=== PATIENT | male | born 1930 | race Caucasian/White ===

== ENCOUNTER 2017-12-21 13:38 | Emergency (ER) | payer OTHER ==
[2017-12-21 13:49] VITALS: TEMP 97.7
--- NOTE | 2017-12-21 14:59 | EDPHY ---
H & P Stated Complaint: 1 week ago fell and hit head, +LOC, ataxic, low appetite, confusion Time Seen by Provider: 12/21/17 14:46 HPI/ROS: CHIEF COMPLAINT: Head injury HISTORY OF PRESENT ILLNESS: Patient is an 87-year-old man who fell backwards in the bathroom in his head on the tile 1 week ago [place] He was seen in the clinic there but they did not have a CT available. He and his just return to the [facility] today. He has a small occipital laceration that was cared for with [facility]. He has had intermittent headaches and very slight confusion and possibly an ataxic gait according to his who is a retired physician. Patient also complains of some bilateral neck pain that does not include the midline. No focal weakness or deficits. 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 REVIEW OF SYSTEMS: Constitutional: denies: chills, fever, recent illness, recent injury EENTM: denies: blurred vision, double vision, nose congestion Respiratory: denies: cough, shortness of breath Cardiac: denies: chest pain, irregular heart rate, lightheadedness, palpitations Gastrointestinal/Abdominal: denies: abdominal pain, diarrhea, nausea, vomiting, blood streaked stools Genitourinary: denies: dysuria, frequency, hematuria, pain Musculoskeletal: See HPI Skin: denies: lesions, rash, jaundice, bruising Neurological: See HPI denies: numbness, paresthesia, tingling, dizziness, weakness Hematologic/Lymphatic: denies: blood clots, easy bleeding, easy bruising Immunologic/allergic: denies: HIV/AIDS, transplant EXAM: GENERAL: Well-appearing, well-nourished and in no acute distress. HEAD: Healing occipital laceration, foul-smelling bandages removed however wound itself is clean, no erythema or drainage. EYES: Pupils equal round and reactive to light, extraocular movements intact, sclera anicteric, conjunctiva are normal. ENT: TMs normal, nares patent, oropharynx clear without exudates. Moist mucous membranes. NECK: Normal range of motion, supple without lymphadenopathy or JVD. LUNGS: Breath sounds clear to auscultation bilaterally and equal. No wheezes rales or rhonchi. HEART: Regular rate and rhythm without murmurs, rubs or gallops. ABDOMEN: Soft, nontender, normoactive bowel sounds. No guarding, no rebound. No masses appreciated. BACK: No CVA tenderness, no spinal tenderness, step-offs or deformities EXTREMITIES: Normal range of motion, no pitting or edema. No clubbing or cyanosis. NEUROLOGICAL: Cranial nerves II through XII grossly intact. Normal speech, normal gait. 5/5 strength, normal movement in all extremities, normal sensation PSYCH: Normal mood, normal affect. SKIN: See above Source: Patient, Family Exam Limitations: No limitations - Personal History Current Tetanus/Diphtheria Vaccine: Yes Current Tetanus Diphtheria and Acellular Pertussis (TDAP): Yes Tetanus Vaccine Date: < 10 years - Medical/Surgical History Hx Asthma: No Hx Chronic Respiratory Disease: No Hx Diabetes: No Hx Cardiac Disease: No Hx Renal Disease: No Hx Cirrhosis: No Hx Alcoholism: No Hx HIV/AIDS: No Hx Splenectomy or Spleen Trauma: No Other PMH: TIAs - Family History Significant Family History: No pertinent family hx - Social History Smoking Status: Never smoked Alcohol Use: Sober Constitutional: Initial Vital Signs Temperature (C) 36.5 C 12/21/17 13:43 Heart Rate 53 L 12/21/17 13:43 Respiratory Rate 18 12/21/17 13:43 Blood Pressure 176/66 H 12/21/17 13:43 O2 Sat (%) 93 12/21/17 13:43 O2 Delivery Mode Room Air Allergies/Adverse Reactions: novacaine Allergy (Uncoded 12/22/17 20:37) Other-Enter Comments Home Medications: Medication Instructions Recorded Aspirin [Aspirin 81mg (*)] 81 mg PO DAILY 12/21/17 Montelukast Sodium [Singulair 10 10 mg PO DAILY@1800 12/21/17 mg (*)] Ondansetron Odt [Zofran Odt 4 mg 4 mg PO Q4 PRN #10 tab 12/21/17 (RX)] Albuterol [Proventil Inhaler HFA 1 - 2 puffs IH Q4-6PRN PRN 12/22/17 (*)] Ibuprofen [Motrin (*)] 200 mg PO Q4-6PRN PRN 12/22/17 Ketorolac 0.5% [Acular 0.5% Opht 1 drops LEFTEYE BID 12/22/17 Drops (*)] Propylene Glycol [Systane Balance] 1 drop EACHEYE PRN PRN 12/23/17 Medical Decision Making - Diagnostics Imaging: Discussed imaging studies w/ inbound call center representative Radiologist ED Course/Re-evaluation: We discussed the CT results which are reassuring. The patient and his feel much better. He still has some slight nausea and will treat with Zofran 4 which will hopefully decrease his appetite and hydration. His wound was redressed. We discussed indications for returning. We discussed treatment for concussions. Differential Diagnosis: Partial list of the Differential diagnosis considered include but were not limited to; concussion, laceration, intracranial injury and although unlikely based on the history and physical exam, I also considered fracture, cervical spine injury, radiculopathy. I discussed these differential diagnoses and the plan with the patient as well as the usual and expected course. The patient understands that the diagnosis is provisional and that in medicine we are not always correct and that further workup is often warranted. Usual and customary warnings were given. All of the patient's questions were answered. The patient was instructed to return to the emergency department should the symptoms at all worsen or return, otherwise to followup with the physician as we discussed. - Data Points Medications Given: Discontinued Medications Ondansetron HCl (Zofran Odt) 4 mg PO EDNOW ONE Stop: 12/21/17 15:51 Last Admin: 12/21/17 16:17 Dose: Not Given Departure - Departure Disposition: Home, Routine, Self-Care Clinical Impression: Concussion Qualifiers: Encounter type: initial encounter Loss of consciousness presence/duration: without LOC Qualified Code(s): S06.0X0A - Concussion without loss of consciousness, initial encounter Scalp laceration Qualifiers: Encounter type: subsequent encounter Qualified Code(s): S01.01XD - Laceration without foreign body of scalp, subsequent encounter Condition: Fair Instructions: Laceration (ED), Concussion (ED) Referrals: Marcio Wesley MD [Primary Care Provider] - As per Instructions Prescriptions: Ondansetron Odt [Zofran Odt 4 mg (RX)] 4 mg PO Q4 PRN #10 tab PRN Reason: Nausea & Vomiting
[2017-12-21] MEDS ORDERED: ONDANSETRON DISINTEGRATING 4 MG TAB PO ONE (15:50)
[2017-12-21 16:13] VITALS: RESP 16
[2017-12-21 16:14] VITALS: BP 156/73; PULSE 67; O2SAT 95
== END 2017-12-21 16:11 | disposition home or self-care (01) ==
DX: S06.0X0A Concussion without loss of consciousness, initial encounter (principal); S01.01XA Laceration without foreign body of scalp, initial encounter; Z79.82 Long term (current) use of aspirin; W01.198A Fall on same level from slipping, tripping and stumbling with subsequent striking against other object, initial encounter; Y92.012 Bathroom of single-family (private) house as the place of occurrence of the external cause

== ENCOUNTER 2017-12-22 18:54 | Inpatient (IN) | payer OTHER ==
[2017-12-22] MEDS ORDERED: NS 500 ML IV ONE (18:57)
[2017-12-22] MEDS ORDERED: IOPAMIDOL (ISOVUE 370) 100 ML BTL IV ONE (19:05)
--- NOTE | 2017-12-22 19:05 | EDPHY ---
H & P Time Seen by Provider: 12/22/17 18:56 HPI/ROS: HPI Fall at home, a facial. 87-year-old male by ambulance. Initially called a stroke alert. Patient reportedly fell by tripping at 6:30 p.m.. The patient reports that he was stepping back in his easy chair lost his balance and fell over backwards. His who accompanies him noted him to be very unsteady on his feet after this event. She stated that he was acting like he was drunk. She then called EMS. He was having receptive aphasia according to EMS. He could not identify a watch and other basic objects. No reported motor weakness. No vomiting. He was seen in our emergency department a day or 2 ago after having fallen 1 week ago while in [facility] on vacation. He was having some confusion. The patient was brought to the emergency department by family for evaluation. He had a CT noncontrast of his brain at that time. He was discharged with diagnosis of concussion syndrome. Glucose per EMS is 137. ROS: Constitutional: No fever, no chills. No weakness. Eyes: No discharge. No changes in vision. ENT: No sore throat. No nasal congestion or rhinorrhea. Respiratory: No cough. No shortness of breath. Cardiac: No chest pain, no palpitations. Gastrointestinal: No abdominal pain, no vomiting, no diarrhea. Genitourinary: No hematuria. No dysuria or increased frequency with urination. Musculoskeletal: No back pain. No neck pain. No myalgias or arthralgias. Skin: No rashes. Neurological: No headache. No focal weakness or altered sensation. As above. Past medical history: He denies any significant past medical history. He takes a daily aspirin. Social history: Nonsmoker. No alcohol. Lives with family. Physical Exam: General Appearance: Alert, no distress. This patient is responding to questions appropriately and in full sentences. This patient appears well- hydrated and well-nourished. Eyes: Pupils equal and round no pallor or injection. No lid edema, erythema or injection. ENT, Mouth: Mucous membranes are moist. The pharyngeal tissues are unremarkable. No edema or swelling. No asymmetry suggestive of abscess. No erythema or exudates. Respiratory: There are no retractions, lungs are clear to auscultation with good air movement bilaterally. Cardiovascular: Regular rate and rhythm. No murmur. Gastrointestinal: Abdomen is soft and nontender, no masses, bowel sounds normal. No focal tenderness at McBurney's point. No Jefferson sign. Neurological: Motor sensory function is grossly intact. Cranial nerves are normal. Cerebellar function, [id number], [id number] intact. Patient demonstrates no expressive aphasia. On my initial evaluation he was slow to identify objects such as a watch and the type of building he was in but he was able to do so. Skin: Warm and dry, no rashes. Musculoskeletal: Neck is supple and nontender. Extremities are symmetrical. All joints range without pain or impingement. Psychiatric: No agitation. No depression. Database: EKG: EKG time is 7:46 p.m.; EKG shows a narrow complex sinus arrhythmia rhythm with a ventricular rate of 59. The ID, QRS, QT intervals are within normal limits. There are no ST-T wave changes indicative of ischemic or injury pattern. No evidence of right heart strain. Interpreted by me. Imaging: CT head without contrast: Age-related changes. Otherwise negative for acute pathology. 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 Results discussed with staff radiologist Dr. Mauro Coker. CT angiogram of head neck. Significant for severe atherosclerotic disease in both carotid arteries with 80% stenosis on the right side. The left carotid is critically stenosed with a possible clot distal to this extreme stenosis. The brain vasculature was unremarkable. Results were discussed with staff radiologist Dr. Mauro Coker. Procedures: Emergency department course: IV placed. Patient placed on a monitor. I evaluated this patient at the door. At this time he had a nonfocal initial neurologic Assessment. There was no evidence of receptive or expressive aphasia as reported by EMS. He was sent for CT imaging as above. 8:00 p.m., spoke with Dr. Kunal Torres. He is familiar with this patient. He will evaluate the patient in the morning for endarterectomy. He is requesting we admit the patient to the hospitalist service. 8:05 p.m., patient re-evaluated. No change in his neurologic status. No focality on exam. He has been downgraded from his stroke alert status. I discussed results of imaging studies with him and his . I discussed plan for admission to our hospitalist service and the need for IV heparin. All of their questions were answered. We will have Neurology consult on this patient in the morning as well as Dr. Kunal Torres to assess for endarterectomy. 8:15 p.m., discussed case with on-call hospitalist Dr. Graf. Case discussed in detail with him. Dr. Graf accepts this patient for admission to the hospitalist service. Patient was started on IV heparin in the emergency department. His remaining emergency department course under my care has been uneventful. He was admitted in stable and improved condition to the hospitalist service [facility] [address]. Differential Diagnosis: The differential diagnosis on this patient includes but is not limited to severe carotid atherosclerotic disease, mechanical fall, TIA. This represents a partial list of diagnoses considered. These considerations are based on history, physical exam, past history, reassessment and diagnostic testing. Smoking Status: Never smoked Constitutional: Initial Vital Signs Temperature (C) 36.8 C 12/22/17 19:27 Heart Rate 53 L 12/22/17 19:27 Respiratory Rate 16 12/22/17 19:27 Blood Pressure 162/76 H 12/22/17 19:27 O2 Sat (%) 94 12/22/17 19:27 O2 Delivery Mode Room Air Allergies/Adverse Reactions: novacaine Allergy (Uncoded 12/22/17 20:37) Other-Enter Comments Home Medications: Medication Instructions Recorded Aspirin [Aspirin 81mg (*)] 81 mg PO DAILY 12/21/17 Montelukast Sodium [Singulair 10 10 mg PO DAILY@1800 12/21/17 mg (*)] Ondansetron Odt [Zofran Odt 4 mg 4 mg PO Q4 PRN #10 tab 12/21/17 (RX)] Albuterol [Proventil Inhaler HFA 1 - 2 puffs IH Q4-6PRN PRN 12/22/17 (*)] Ibuprofen [Motrin (*)] 200 mg PO Q4-6PRN PRN 12/22/17 Ketorolac 0.5% [Acular 0.5% Opht 1 drops LEFTEYE BID 12/22/17 Drops (*)] Propylene Glycol [Systane Balance] 1 drop EACHEYE PRN PRN 12/23/17 Medical Decision Making - Data Points Laboratory Results: Laboratory Results 12/22/17 19:00 12/22/17 19:00 Medications Given: Aspirin (Aspirin) 81 mg PO DAILY MEL Stop: 06/21/18 08:59 Last Admin: 12/24/17 08:50 Dose: 81 mg Enalaprilat (Vasotec Iv) 1.25 mg IVP Q4H PRN PRN Reason: SBP>160 Stop: 06/21/18 21:39 Last Admin: 12/24/17 08:49 Dose: 1.25 mg Hydromorphone HCl (Dilaudid) 0.2 - 0.4 mg IVP Q2HRS PRN PRN Reason: Pain, Severe Unable to Take PO Stop: 01/02/18 19:53 Last Admin: 12/23/17 20:50 Dose: 0.2 mg Cefazolin Sodium/Dextrose (Ancef 1 Gm (Premix)) 50 mls @ 200 mls/hr IV Q8H MEL PRN Reason: Protocol Stop: 12/24/17 18:44 Last Admin: 12/24/17 02:20 Dose: 50 mls Dexmedetomidine/Sodium Chloride (Precedex 4 Mcg/Ml 50 Ml (Premix)) 50 mls @ 0 mls/hr IV CONT MEL PRN Reason: As Directed Stop: 06/21/18 21:59 Last Admin: 12/24/17 06:12 Dose: 50 mls Ketorolac Tromethamine (Acular 0.5% Opht Drops) 1 drops LEFTEYE BID [facility] Stop: 06/21/18 08:59 Last Admin: 12/24/17 08:52 Dose: 1 drop Lorazepam (Ativan Injection) 0.5 - 1 mg IVP Q8H PRN PRN Reason: AGITATION Stop: 06/21/18 21:38 Last Admin: 12/23/17 21:15 Dose: 0.5 mg Montelukast Sodium (Singulair) 10 mg PO DAILY@1800 [facility] Stop: 06/21/18 17:59 Last Admin: 12/23/17 23:01 Dose: Not Given Discontinued Medications Bacitracin (Bacitracin Ointment Tube) Confirm Administered Dose 14.2 dana TP .STK -MED ONE Stop: 12/23/17 15:33 Last Admin: 12/23/17 20:22 Dose: Not Given Bupivacaine HCl (Sensorcaine 0.5% Vial) Confirm Administered Dose 30 ml .ROUTE .STK-MED ONE Stop: 02/12/18 15:31 Last Admin: 12/23/17 19:25 Dose: 15 ml Cefazolin Sodium (Ancef) Confirm Administered Dose 1 gm .ROUTE .STK-MED ONE Stop: 12/23/17 18:32 Last Admin: 12/23/17 18:32 Dose: 1 gm Cefazolin Sodium (Ancef) Confirm Administered Dose 1 gm .ROUTE .STK-MED ONE Stop: 12/23/17 18:32 Last Admin: 12/23/17 19:05 Dose: Not Given Heparin Sodium (Porcine) (Heparin Injection) 0 unit IVP EDNOW ONE PRN Reason: Protocol Stop: 12/22/17 20:00 Last Admin: 12/22/17 20:39 Dose: 4,500 units Heparin Sodium (Porcine) (Heparin Injection) 0 unit IVP ONCE ONE PRN Reason: Protocol Stop: 12/22/17 21:09 Last Admin: 12/22/17 23:07 Dose: Not Given Heparin Sodium (Porcine) (Heparin Flush 2,000 Unit/Ns 1,000 Ml) Confirm Administered Dose 2,000 unit .ROUTE .[facility]-MED ONE Stop: 12/23/17 15:32 Last Admin: 12/23/17 16:35 Dose: Not Given Sodium Chloride (Ns) 500 mls @ 500 mls/hr IV EDNOW ONE PRN Reason: Protocol Stop: 12/22/17 19:56 Last Admin: 12/22/17 19:26 Dose: 500 mls Heparin Sodium (Porcine) (Heparin 50 Units/Ml (Premix)) 500 mls @ 0 mls/hr IV EDNOW ONE; Per Protocol PRN Reason: Protocol Stop: 12/22/17 20:00 Last Admin: 12/22/17 20:40 Dose: 500 mls Cefazolin Sodium (Cefazolin Syringe) 2 gm in 20 mls @ 200 mls/hr IVP ONCALL ONE PRN Reason: Protocol Stop: 12/23/17 10:08 Last Admin: 12/23/17 19:08 Dose: Not Given Lactated Ringer's (Lr) 1,000 mls @ 0 mls/hr IV ONCE ONE PRN Reason: KVO Stop: 12/23/17 16:52 Last Admin: 12/23/17 16:58 Dose: 1,000 mls Nicardipine/Sodium Chloride (Cardene 0.1 Mg/Ml (Premix)) 200 mls @ 0 mls/hr IV ONCE ONE; Titrate PRN Reason: Protocol Stop: 12/23/17 17:31 Last Admin: 12/23/17 19:07 Dose: Not Given Papaverine HCl (Papaverine) Confirm Administered Dose 60 mg .ROUTE .STK-MED ONE Stop: 12/23/17 15:34 Last Admin: 12/23/17 20:22 Dose: Not Given Protamine Sulfate (Protamine Sulfate) Confirm Administered Dose 50 mg IVP .STK- MED ONE Stop: 12/23/17 15:34 Last Admin: 12/23/17 20:22 Dose: Not Given Thrombin (Thrombin-Jmi) Confirm Administered Dose 20,000 unit TP .STK-MED ONE Stop: 12/23/17 15:32 Last Admin: 12/23/17 19:22 Dose: 20,000 unit Departure - Departure Disposition: [facility] Acute Clinical Impression: Carotid stenosis, bilateral, Transient confusion, Fall from chair
[2017-12-22 19:17] LABS: PLATELET COUNT 317 10^3/uL (150-400)
[2017-12-22 19:27] LABS: PROTIME(PATIENT) 13.4 SEC (12.0-15.0)
--- NOTE | 2017-12-22 19:47 | CPEKG ---
Heart Rate: 59 RR Interval: 1017 P-R Interval: 196 QRSD Interval: 92 QT Interval: 476 QTC Interval: 472 P [place]: 61 QRS [place]: -5 T Wave [place]: 59 EKG Severity - OTHERWISE NORMAL ECG - EKG Impression: SINUS ARRHYTHMIA, RATE 52-67 Electronically Signed By: Dorothy You 23-Dec-2017 00:06:15
[2017-12-22] MEDS ORDERED: HEPARIN/DEXTROSE 500 ML IV ONE (19:59)
[2017-12-22] MEDS ORDERED: HEPARIN 10,000 UNIT/10 ML MDV (1,000 UNIT/ML) IVP ONE ×2 (19:59→21:08)
[2017-12-22] MEDS ORDERED: ONDANSETRON DISINTEGRATING 4 MG TAB PO PRN (21:05)
[2017-12-22] MEDS ORDERED: ONDANSETRON 4 MG/2 ML VIAL IVP PRN (21:05)
[2017-12-22] MEDS ORDERED: ALBUTEROL 60 PUFFS/8 GM MDI IH PRN (21:07)
[2017-12-22] MEDS ORDERED: HEPARIN 10,000 UNIT/10 ML MDV (1,000 UNIT/ML) IVP PRN (21:08)
[2017-12-22] MEDS ORDERED: HEPARIN/DEXTROSE 500 ML IV SCH (21:15)
--- NOTE | 2017-12-22 21:45 | GHP ---
[f rep st] HISTORY AND PHYSICAL DATE OF ADMISSION: 12/22/2017 CHIEF COMPLAINT: Fall, ataxia. HISTORY OF PRESENT ILLNESS: This is an 87-year-old male with no significant past medical history, wh o apparently fell a week ago while he was in [facility]. His says that he was in the bathroom, fell , and hit his head. It is unknown what happened in there. Yesterday, he came to the emergency room, [place] He has had intermittent headaches since then and some conf usion, and was ataxic as well. He says he got a little bit better earlier in the week, but now has g kaycee worse. CAT scan yesterday did not show any acute issues. He had a low appetite over the last few days as well. He has only been drinking tea and water. Today, the patient fell again. He was stepping back to his easy chair and lost his balance. The pat alyssia's says after the event, he has been unsteady on his feet. He was also noted to have a rece ptive aphasia according to EMS. REVIEW OF SYSTEMS: Limited review of systems obtained secondary to the patient's difficulty hearing. Pertinent positives and negatives are noted in the HPI. PAST MEDICAL HISTORY: Asthma, glaucoma. SOCIAL HISTORY: No smoking. 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 . FAMILY HISTORY: Both parents are . PHYSICAL EXAMINATION: VITAL SIGNS: Afebrile, blood pressure 155/77, heart rate 52, oxygen saturatio n 93% on room air. GENERAL: The patient is well developed and in no apparent distress. HEENT: Non icteric sclerae. Extraocular movements intact. Moist mucous membranes. NECK: Supple. No thyromeg campbell. LUNGS: Good effort. Clear to auscultation bilaterally. CARDIOVASCULAR: Regular rate and rhy thm. No murmurs or gallops. ABDOMEN: Positive bowel sounds. Soft, nontender, nondistended. No he patosplenomegaly. EXTREMITIES: No clubbing, cyanosis, or edema. SKIN: Without rash. Dry. Intact . NEUROLOGIC: Alert and oriented. He is responding to questions, although he is hard of hearing. Moving all 4 extremities equally. PSYCHIATRIC: Normal mood and affect. LABORATORY DATA: Sodium is low at 122. Troponin is negative. White count 13, hemoglobin 14. CTA o f the neck shows critical stenosis of the proximal left internal carotid artery. A small amount of c ontrast is getting distal to the stenosis. Possible thrombus in the distal ICA. Severe stenosis of the right internal carotid artery of 80%. EKG personally reviewed and interpreted shows a normal sin us rhythm and no ischemic changes. ASSESSMENT: This is an 87-year-old male presenting with ataxia after a fall and critical left manager intern al carotid artery stenosis. PLAN: 1. Fall and ataxia. This all possibly could be caused by his low sodium rather than the critical ca rotid stenosis. The plan will be to correct his sodium before making any decisions in terms of fixin g his carotid stenosis. His is a little bit reluctant to go ahead with surgery. We will get Ne urology to see the patient as well in the morning, and Dr. Torres already has been notified. 2. Hyponatremia. This is probably low solute and an element of SIADH. We are checking his urine so dium now. He has gotten 500 cc of normal saline, and he is on a heparin drip. I am going to recheck a sodium now. If it is at the same level, I might give him a little bit more fluid, but if it is go ing up, I will hold on that. We will continue fluid restriction and consider salt tablets as well. 3. Critical left ICA stenosis and possible thrombus. We will continue IV heparin as started by the ER physician. We will have Neurology see the patient. I am not sure if we need an MRA to confirm th is. We will hold off on ordering until Neurology sees him. 4. Asthma. This is quiescent. 5. Possible recent concussion. CODE STATUS: The patient is a DNR. /[id number]/MODL
[2017-12-23 03:33] LABS: PLATELET COUNT 281 10^3/uL (150-400)
--- NOTE | 2017-12-23 08:47 | GCON ---
[f rep st] CONSULTATION NEUROLOGIC CONSULTATION REFERRING PHYSICIAN: Sparkle Graf MD HISTORY: The patient is an 87-year-old gentleman, whom I am asked to see in neurologic consultation regarding severe carotid stenosis and neurologic dysfunction. The history is obtained from reviewing the medical records predominantly, but the patient could participate with some recollection of event s, but at other times is a little confused about all details. His is not currently here and I t ried to call her, but her home number was busy. He was on a trip to [facility] about 1 week ago, when he fell and struck his head. On returning back here, they were seen in the emergency room 2 days ago a nd had a head CT that showed no acute pathology and was discharged. He says he has been having some headache. In the records from that emergency room visit, he was noted to have fallen backwards and s truck his head on a tile. He had apparently been seen at a local clinic. They did not do any specif ic imaging. There was a laceration that was treated with Steri-Strips. They felt he might have a li ttle bit of unsteadiness and very slight confusion. He was complaining of some bilateral neck pain. On his examination that day, there were not specific focal findings seen. In addition to having a h ead CT which was unremarkable, he also had a CT scan of the cervical spine obtained. There was no ev idence of acute fracture. He was discharged but came back to the emergency department yesterday and at that time, had a repeat head CT again showing no definite acute stroke, but some evidence of old i schemic change documented in the left occipital and right parietal lobes. It was not felt to be sign ificantly different from the day before. He had a CT angiogram of the head and neck, which revealed no intracranial stenoses but a critical stenosis of the left internal carotid artery and severe steno sis of the right internal carotid artery. He was placed on heparin and admitted to the hospital. Th e patient says that he has a little bit of headache now. He denies any focal numbness or weakness. At times, he has been noted to be a little slow with his communication, but nothing else more specifi c so far has been described. Other than the trauma, nothing else more specific has been known to cause some of the symptoms. He h as been found to have significant hyponatremia, around 123. Prior to yesterday's sodium of 122, the last documented sodium in the computer was in 2011, where it was 141. From the patient's perspective , symptoms are not severe. They have been present now for this week. The discomfort is of mild pain in the left temporal region and mild neck discomfort. REVIEW OF SYSTEMS: A 10-point review of systems was completed and unremarkable except for that noted above. PAST MEDICAL HISTORY: Notable for glaucoma and asthma. There is no known TIA or coronary disease hi storically. SOCIAL HISTORY: No smoking. 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 I am not aware of a specific alcohol history, but he denies any significant alcohol problems. FAMILY HISTORY: Negative for acute neurologic issue. Both his parents are . MEDICATIONS: At home were listed as aspirin, albuterol, ibuprofen as needed, Ketoralac eye drops to the left eye, Singulair, and Zofran as needed. In the hospital, he has had heparin added for infusio n to prevent further thrombotic phenomena or stenosis. ALLERGIES: Allergy to Novocain. PHYSICAL EXAM: VITAL SIGNS: Blood pressure is 143/70, pulse of 60, respirations 16, temperature 37. 1. GENERAL APPEARANCE: He is well-developed, in no acute distress. HEENT: Eyes are clear with a n yeimi that is supple. CARDIAC: Regular rate and rhythm. NEUROLOGIC: He is awake, but lethargic and oriented to his name, location, and the year. He understands the basic circumstances, being able to explain where he was and that he fell and simply slipped. He also knows that he has had 2 trips to [facility] and is in the hospital for his symptoms, but he was not able to specifically tell me that he had severe bilateral carotid stenoses, so I explained that to him. His general fund of knowledge seems to be fairly well preserved, although his lethargy makes it hard to get a full perspective on his cognition. His concentration and attention are currently diminished. Language skills are charac terized by a little bit of a latency to answer questions and may have a little bit of trouble express ing himself effectively. Pupils are 2 mm and reactive. Extraocular movements are intact. No fundus copic exam abnormalities. I do not detect visual field loss. The extraocular movements are intact. Normal facial sensation and strength. Palate elevates symmetrically. Tongue protrudes in the midli ne. Hearing is diminished bilaterally. No definite weakness of head turning or shoulder shrug. Mot or exam reveals normal muscle bulk and tone with 5/5 strength. Sensation is preserved for temperatur e and light touch. Reflexes are 2+. No pathologic reflexes. No ataxic movements in the upper extre mities, but I did have him try to walk with me currently. DATA: The imaging studies have all been reviewed and laboratory studies as outlined above. IMPRESSION: 1. The patient's problem has begun with a fall with head trauma, perhaps producing mild concussion. 2. He has critical carotid stenosis on the left and severe on the right. This certainly could contr ibute to some of his symptoms and the possibility of transient ischemic attack needs to be considered with the fluctuations in some of his language skills and may or may not be related to causing some a taxia, which might just be reflection of concussion. 3. Hyponatremia, for which we do not know the onset. It was not present several years ago, but we d o not have recent comparisons available in the system. This could contribute to some of the mild con fusion and neurologic symptoms as well. RECOMMENDATION: 1. We need to consult further with his . The patient was informed about his condition and wante d her input regarding the possibility of doing carotid surgery. He is at high risk for severe or lif e-threatening stroke, particularly on the left hemisphere, and we will continue heparin for now. Dr. Torres was briefly in the room when we talked about this and he will come back later and try to have further discussions with the patient and his . I strongly recommend carotid endarterectomy, alth ough there are some risks associated with this, including stroke. I think his risk of stroke without carotid endarterectomy is extremely high and would warrant consideration of this procedure. 2. Slow correction of the hyponatremia. /[id number]/MODL
--- NOTE | 2017-12-23 09:07 | SOAPPROG ---
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 CAROTID HAS A 80% STENOSIS WELL/ VERTEBRALS ARE OPEN RISKS AND OPTIONS DISCUSSED WITH PT WHO WISHES TO CONFER WITH NO PAST HX OF CARDIAC ISSUES Plan:RECCOMMEND URGENT CEA AND HEPARIN UNTIL THEN/ NPO 12/23/17 09:02 Objective: Vital Signs Temp Pulse Resp BP Pulse Ox 37.1 C 60 16 143/70 H 93 12/23/17 08:00 12/23/17 08:00 12/23/17 08:00 12/23/17 08:00 12/23/17 08:00 Laboratory Results 12/23/17 03:25 12/23/17 03:25 12/22/17 12/23/17 12/24/17 05:59 05:59 05:59 Intake Total 520 Output Total 750 Balance -230 PT 13.4 SEC (12.0-15.0) 12/22/17 19:00 INR 1.00 (0.83-1.16) 12/22/17 19:00 ICD10 Worksheet Patient Problems: Problems Problem Status Onset Carotid stenosis, bilateral Acute Fall from chair Acute Transient confusion Acute
[2017-12-23] MEDS: ASPIRIN 81 MG CHEWABLE TAB PO SCH (09:23)
[2017-12-23] MEDS: KETOROLAC 0.5% 5 ML OPHT.BTL LEFTEYE SCH ×2 (09:24→23:03)
--- NOTE | 2017-12-23 09:48 | HOSPPROG ---
Hospitalist Progress Note Assessment/Plan: 87-year-old relatively healthy man with a history of asthma is admitted with a fall and ataxia. He fell a week ago and hit his head since then he has had poor p.o. intake due to poor appetite and increased ataxia. Of a evaluation in the ER did note critical stenosis of his carotid arteries and he is being admitted for further evaluation and treatment. # critical stenosis and bilateral carotid artery disease, reviewed notes by General surgery with plans on carotid endarterectomy later today. Will continue heparin for now * Heparin drip * Keep NPO # hyponatremia unclear etiology but possibly due to low solute intake. Medications do not appear to be causing. Other causes could be the head trauma. * Minimize free water. * Will check urine electrolytes and osmolality * Push solute intake when patient is postop and able to eat * Patient needs surgery for critical stenosis noted above. During surgery would recommend normal saline rather than LR and monitor sodiums closely postop. At the current level he is low risk for seizures. # RAD. Currently on Singulair, will check with pharmacy to make sure that cannot cause hyponatremia. # DVT prophylaxis. Currently on full-dose heparin Subjective: Patient new to me and chart reviewed. Feeling okay without specific complaints of headache. He is relatively weak and very hard of hearing Objective: Vital Signs Temp Pulse Resp BP Pulse Ox 37.1 C 60 16 143/70 H 93 12/23/17 08:00 12/23/17 08:00 12/23/17 08:00 12/23/17 08:00 12/23/17 08:00 Laboratory Results 12/23/17 03:25 12/23/17 03:25 12/22/17 12/23/17 12/24/17 05:59 05:59 05:59 Intake Total 520 Output Total 750 Balance -230 PT 13.4 SEC (12.0-15.0) 12/22/17 19:00 INR 1.00 (0.83-1.16) 12/22/17 19:00 - Physical Exam Constitutional: not in pain, chronically ill appearing Eyes: PERRL, anicteric sclera, EOMI Ears, Nose, Mouth, Throat: hard of hearing Cardiovascular: regular rate and rhythym Respiratory: no respiratory distress, reduced air movement Gastrointestinal: soft, non-tender abdomen Genitourinary: no bladder fullness Skin: warm Neurologic: No facial droop Psychiatric: interacting appropriately ICD10 Worksheet Patient Problems: Problems Problem Status Onset Carotid stenosis, bilateral Acute Transient confusion Acute Fall from chair Acute
[2017-12-23] MEDS ORDERED: ceFAZolin 2 GM/SWFI 2 GM/20 ML SYR IVP ONE (10:03)
--- NOTE | 2017-12-23 10:05 | PDMN ---
Medical Necessity Medical necessity: Patient meets inpatient criteria per physician note and [facility] guidelines: Systemic or Infectious Condition GRG, likely to become S-300 Carotid Endarterectomy (Na 122 requiring slow correction; after several falls and subsequent neurologic dysfunction, found to have critical stenosis of L ICA ; NPO, awaiting likely carotid endarterectomy; anticipated LOS > 2 midnights for further eval and treatment of same.)
[2017-12-23] MEDS ORDERED: Propylene Glycol [Systane Balance] 1 DROP EACHEYE PRN (12:19)
[2017-12-23] MEDS ORDERED: CARBOXYMETHYLCELLULOSE 1% 0.4 ML DROPERETTE EACHEYE PRN (12:28)
[2017-12-23] MEDS ORDERED: BUPIVACAINE 0.5% 30 ML SDV ONE (15:30)
[2017-12-23] MEDS ORDERED: THROMBIN (BOVINE) 20,000 UNIT SPRAY TP ONE (15:31)
[2017-12-23] MEDS ORDERED: BACITRACIN ZINC 14.2 GM OINTTUBE TP ONE (15:32)
[2017-12-23] MEDS ORDERED: PAPAVERINE HCL 60 MG/2 ML SDV ONE (15:33)
[2017-12-23] MEDS ORDERED: PROTAMINE SULFATE 50 MG/5 ML VIAL IVP ONE (15:33)
[2017-12-23] MEDS ORDERED: LR 1,000 ML IV ONE (16:51)
[2017-12-23] MEDS ORDERED: ETOMIDATE 20 MG/10 ML VIAL ONE (17:14)
[2017-12-23] MEDS ORDERED: REMIFENTANIL HCL 1 MG VIAL ONE (17:15)
[2017-12-23] MEDS ORDERED: PROPOFOL/EMULSION 500 MG/50 ML BOTTLE IV ONE (17:15)
[2017-12-23] MEDS ORDERED: fentaNYL 100 MCG/2 ML INJ ONE ×3 (17:15→18:28)
[2017-12-23] MEDS ORDERED: HEPARIN 10,000 UNIT/10 ML MDV (1,000 UNIT/ML) ONE (17:28)
[2017-12-23] MEDS ORDERED: ONDANSETRON 4 MG/2 ML VIAL ONE (17:29)
[2017-12-23] MEDS ORDERED: DEXAMETHASONE 4 MG/ML VIAL ONE (17:29)
[2017-12-23] MEDS ORDERED: niCARdipine/NACL 200 ML IV ONE (17:30)
[2017-12-23] MEDS ORDERED: ceFAZolin 1 GM VIAL ONE ×2 (18:31)
--- NOTE | 2017-12-23 18:51 | POSTANESTH ---
Post Anesthetic Evaluation Cardiovascular Status: Normal, Stable Respiratory Status: Normal, Stable Level of Consciousness/Mental Status: Can Participate in Eval, Other, See Comment Pain Control: Adequate, Prn Tx Ordered Nausea/Vomiting Control: Adequate, Prn Tx Ordered Complications Possibly Related to Anesthesia: None Noted (pre-op mental status = obtunded; post-op = similar.)
--- NOTE | 2017-12-23 18:51 | PDANEPAE ---
ANE History of Present Illness critical carotid stenosis for left CEA; altered mental status; hyponatremia; fall with head strike ANE Past Medical History - Cardiovascular History Hx Hypertension: No Hx Arrhythmias: No Hx Chest Pain: No Hx Coronary Artery / Peripheral Vascular Disease: Yes Hx CHF / Valvular Disease: No Hx Palpitations: No - Pulmonary History Hx COPD: No Hx Asthma/Reactive Airway Disease: Yes Hx Recent Upper Respiratory Infection: No Hx Oxygen in Use at Home: No Hx Sleep Apnea: No Sleep Apnea Screening Result - Last Documented: Negative - Endocrine History Hx Diabetes: No Obesity: no - Chronic Pain History Chronic Pain: No ANE Review of Systems Review of systems is: negative Review of Systems: - Exercise capacity Exercise capacity: >=4 METS ANE Patient History - Allergies Allergies/Adverse Reactions: novacaine Allergy (Uncoded 12/22/17 20:37) Other-Enter Comments - Home Medications Home medications: home medication list seen and reviewed Home Medications: Aspirin [Aspirin 81mg (*)] 81 mg PO DAILY 12/21/17 [Last Taken 12/22/17] Montelukast Sodium [Singulair 10 mg (*)] 10 mg PO DAILY@1800 12/21/17 [Last Taken 12/21/17] Albuterol [Proventil Inhaler HFA (*)] 1 - 2 puffs IH Q4-6PRN PRN 12/22/17 [Last Taken Unknown] Ibuprofen [Motrin (*)] 200 mg PO Q4-6PRN PRN 12/22/17 [Last Taken 12/22/17] Ketorolac 0.5% [Acular 0.5% Opht Drops (*)] 1 drops LEFTEYE BID 12/22/17 [Last Taken 12/22/17] Propylene Glycol [Systane Balance] 1 drop EACHEYE PRN PRN 12/23/17 [Last Taken Unknown] - NPO status NPO Since - Liquids (Date): 12/23/17 NPO Since - Liquids (Time): 00:01 NPO Since - Solids (Date): 12/22/17 NPO Since - Solids (Time): 20:00 - Anes Hx Anes Hx: no prior problems - Smoking Hx Smoking Status: Never smoked ANE Labs/Vital Signs - Labs Result Diagrams: 12/23/17 03:25 12/23/17 12:43 - Vital Signs Blood Pressure: 179/85 Heart Rate: 59 Respiratory Rate: 16 O2 Sat (%): 93 Height: 177.8 cm Weight: 74.843 kg ANE Physical Exam - Airway Neck exam: FROM Mallampati Score: Class 2 Mouth exam: normal dental/mouth exam - Pulmonary Pulmonary: no respiratory distress - Cardiovascular Cardiovascular: regular rate and rhythym - ASA Status ASA Status: IV ANE Anesthesia Plan Anesthesia Plan: general endotracheal anesthesia Lines/Monitors: arterial line Specialized Airway: video laryngoscope Urgent/Emergent Case: Jaspal garcía completed preop but documented later for safe timely pt care
[2017-12-23] MEDS ORDERED: LABETALOL HCL 5 MG/ML 20 ML MDV IVP PRN (19:48)
[2017-12-23] MEDS ORDERED: ALBUTEROL 3 ML DEYVIAL IH PRN (19:48)
[2017-12-23] MEDS ORDERED: OXYCODONE/APAP 5/325 TAB PO PRN ×2 (19:48→19:54)
[2017-12-23] MEDS ORDERED: DEXAMETHASONE 4 MG/ML VIAL IVP PRN (19:48)
[2017-12-23] MEDS ORDERED: ACETAMINOPHEN 500 MG TAB PO PRN (19:48)
[2017-12-23] MEDS ORDERED: epHEDrine SULFATE 10 MG/ML SYR IVP PRN (19:48)
[2017-12-23] MEDS ORDERED: PHENYLEPHRINE HCL 100 MCG/ML SYR IVP PRN (19:48)
[2017-12-23] MEDS ORDERED: METOCLOPRAMIDE 10 MG/2 ML VIAL IVP PRN (19:48)
[2017-12-23] MEDS ORDERED: NALOXONE HCL 0.4 MG/ML INJ IVP PRN (19:48)
[2017-12-23] MEDS ORDERED: NS 500 ML IV PRN (19:48)
[2017-12-23] MEDS ORDERED: PROMETHAZINE HCL 25 MG/ML INJ IVP PRN (19:48)
[2017-12-23] MEDS ORDERED: HYDROmorphONE/DILAUDID 1 MG/ML INJ IVP PRN ×2 (19:48→19:54)
[2017-12-23] MEDS ORDERED: fentaNYL 100 MCG/2 ML INJ IVP PRN (19:48)
[2017-12-23] MEDS ORDERED: ENALAPRILAT DIHYDRATE 1.25 MG/ML VIAL IVP PRN (19:48)
[2017-12-23] MEDS ORDERED: HYDROCODONE/APAP 5/325 TAB PO PRN (19:48)
[2017-12-23] MEDS ORDERED: ONDANSETRON 4 MG/2 ML VIAL IVP PRN ×2 (19:48→19:54)
--- NOTE | 2017-12-23 20:00 | POSTOPPROG ---
Post Op Note Date of Operation: 12/23/17 Surgeon: Hubert Torres Ekg/Ecg Technician: Debora Wallace Anesthesiologist: Prashanth Amaya Anesthesia: GET(General Endotracheal) Pre-op Diagnosis: critical L carotid stenosis Post-op Diagnosis: same Procedure: L CEA c EEG monitoring and patch closure Findings: tight ulcerated plaque, no eeg changes, shunt used Inf/Abcess present in the surg proc area at time of surgery?: No EBL: 50-100 Complications: none Specimen(s): plaque to path
--- NOTE | 2017-12-23 20:01 | POSTOPPROG ---
Post Op Note Date of Operation: 12/23/17 Surgeon: Hubert Torres Peoplesoft Hcm Consultant: BRONWYN Anesthesiologist: PATTI Anesthesia: GET(General Endotracheal) Pre-op Diagnosis: CRITICAL LEFT CAROTID STENOSIS Post-op Diagnosis: SAME Indication: TIA Procedure: LEFT CEA WITH EEG MONITOR Findings: VERY TIGHT ULCERATED PLAQUE Inf/Abcess present in the surg proc area at time of surgery?: No Depth: Organ Space EBL: 50-100 Complications: 0 Specimen(s): PLAQUE
[2017-12-23] MEDS ORDERED: LORazepam 2 MG/ML INJ IVP PRN (21:39)
[2017-12-23] MEDS: DEXMEDETOMIDINE IN 0.9 % NACL 50 ML IV SCH (21:46)
[2017-12-23] MEDS: MONTELUKAST SODIUM 10 MG TAB PO SCH (23:01)
[2017-12-24 05:26] LABS: PLATELET COUNT 251 10^3/uL (150-400)
[2017-12-24] MEDS: DEXMEDETOMIDINE IN 0.9 % NACL 50 ML IV SCH (06:12)
--- NOTE | 2017-12-24 06:57 | GCON ---
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 HISTORY OF PRESENT ILLNESS: The patient is a very pleasant 87-year-old white male with a past medica l history of asthma and glaucoma. He presents after a fall. Apparently a week prior, he was vacatio rowdy in [facility] at which time, he fell and struck his head. When he returned to the [facility], he sought medical attention and came to the emergency room complaining of intermittent headache. He was also having some confusion and ataxia. CT scan showed nothing acute. However, symptoms worsened over the course of a week and he returned to the emergency room after a 2nd fall. He was found to have a cri tical left internal carotid artery stenosis, was subsequently taken to the operating room for a left carotid endarterectomy. Currently, patient is resting comfortably, with the exception of some neck p ain, has no complaints. He denies any cough or production of sputum. There is no chest pain, pleuri tic-type chest pain, or angina equivalent. No fever or night sweats. He is currently resting comfor tably. PAST MEDICAL HISTORY: Significant for asthma and glaucoma. FAMILY HISTORY: Noncontributory. SOCIAL HISTORY: No history of tobacco use. Insignificant alcohol use. He is . Has [employer] family support. 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 PAST SURGICAL HISTORY: Noncontributory. REVIEW OF SYSTEMS: Ten-point review of systems was performed and is negative with the exception of w hat is reported in the HPI. PHYSICAL EXAM: VITAL SIGNS: Blood pressure 133/57, pulse is 45, respirations 14, temperature 36.7, oxygen saturation 97% on 2 L. GENERAL: He is a well-developed, well-nourished, elderly white male w ho is resting comfortably in no acute distress. HEENT: Eyes are PERRLA, EOMI. Throat shows no eryt dilan or tonsillar hypertrophy. NECK: Supple. It is bandaged on the left side. HEART: Regular rat e and rhythm with a 2/6 systolic murmur at the left sternal border without radiation. LUNGS: Show d iminished breath sounds but no wheeze. ABDOMEN: Soft, nontender. Bowel sounds are present in all 4 quadrants. EXTREMITIES: No clubbing, cyanosis, or edema. LABORATORIES: White count is 12.0, hemoglobin 12, hematocrit 35, platelet count is 251. Sodium is 1 24, potassium 4.3, chloride 92, CO2 is 23, BUN 14, creatinine 0.7, glucose is 105. Urinalysis, pH is 6, specific gravity 1.035, otherwise negative. Arterial blood gas, pH 7.44, pCO2 of 35, pO2 of 195, bicarb of 24, oxygen saturation 99%. IMPRESSION: 1. Critical left internal carotid artery stenosis, status post carotid endarterectomy. 2. Severe hyponatremia. 3. Status post falls and ataxia etiology of which is unclear at this time. I feel this is most like ly secondary to his hyponatremia rather than his critical carotid stenosis. 4. Asthma, stable. RECOMMENDATIONS: 1. Will correct sodium slowly. 2. Close cardiovascular monitoring. 3. PT and OT. 4. DVT and PE prophylaxis. 5. Stress ulcer prophylaxis. 6. Adequate pain control. 7. Neurology has seen the patient. Thank you very much. /[id number]/MODL
--- NOTE | 2017-12-24 08:32 | NEUROPROG ---
Assessment: The patient is doing well following carotid endarterectomy for severe carotid stenosis. He still has hyponatremia, which will be corrected gradually. I do not find any evidence of acute neurologic deficits. We will continue to monitor his progress but anticipate a good recovery and perhaps eventually a right carotid endarterectomy. Subjective: The patient is seen this morning after having left carotid endarterectomy for critical stenosis successfully performed yesterday evening. He says he has a little bit of neck pain but no severe pain. He denies headache or any focal numbness or weakness. He feels aware of what has occurred. He denies any nausea or slurred speech or chest pain or palpitations. Objective: Vital Signs Temp Pulse Resp BP Pulse Ox 36.7 C 43 L 15 159/69 H 98 12/24/17 02:00 12/24/17 08:10 12/24/17 08:10 12/24/17 08:10 12/24/17 08:10 Laboratory Results 12/24/17 05:20 12/24/17 05:20 12/23/17 12/24/17 12/25/17 05:59 05:59 05:59 Intake Total 520 1167.1 Output Total 750 1075 Balance -230 92.1 PT 13.4 SEC (12.0-15.0) 12/22/17 19:00 INR 1.00 (0.83-1.16) 12/22/17 19:00 He is lethargic but easy to arouse and will answer questions. He is oriented to his location and the city and state and year and month. He is able to follow instructions. He is a little slow with answering questions but does so effectively. Pupils are 3 mm and reactive. Extraocular movements are intact. No obvious visual field loss. Normal facial sensation and strength. Hearing is diminished bilaterally. Motor exam reveals normal muscle bulk and tone with 5 /5 strength. No sensory loss in the extremities and reflexes are 1+. Allergies/Adverse Reactions: novacaine Allergy (Uncoded 12/22/17 20:37) Other-Enter Comments
[2017-12-24] MEDS: ENALAPRILAT DIHYDRATE 1.25 MG/ML VIAL IVP PRN (08:49)
[2017-12-24] MEDS: ASPIRIN 81 MG CHEWABLE TAB PO SCH (08:50)
[2017-12-24] MEDS: KETOROLAC 0.5% 5 ML OPHT.BTL LEFTEYE SCH ×2 (08:52→20:25)
--- NOTE | 2017-12-24 09:23 | SOAPPROG ---
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 CAROTID HAS A 80% STENOSIS WELL/ VERTEBRALS ARE OPEN RISKS AND OPTIONS DISCUSSED WITH PT WHO WISHES TO CONFER WITH NO PAST HX OF CARDIAC ISSUES Plan:RECCOMMEND URGENT CEA AND HEPARIN UNTIL THEN/ NPO 12/23/17 09:02 12/24/17 09:22 POSTOP ALERT, VS STABLE, NEURO INTACT, AFEBRILE, WOUND OK, STILL HYPONATREMIC AT 124 Objective: Vital Signs Temp Pulse Resp BP Pulse Ox 36.7 C 43 L 15 158/51 H 98 12/24/17 02:00 12/24/17 08:10 12/24/17 08:10 12/24/17 09:05 12/24/17 08:10 Laboratory Results 12/24/17 05:20 12/24/17 05:20 12/23/17 12/24/17 12/25/17 05:59 05:59 05:59 Intake Total 520 1167.1 Output Total 750 1075 Balance -230 92.1 PT 13.4 SEC (12.0-15.0) 12/22/17 19:00 INR 1.00 (0.83-1.16) 12/22/17 19:00 ICD10 Worksheet Patient Problems: Problems Problem Status Onset Carotid stenosis, bilateral Acute Fall from chair Acute Transient confusion Acute
[2017-12-24] MEDS ORDERED: NS 1,000 ML IV SCH (09:45)
--- NOTE | 2017-12-24 15:05 | ASMTCMCOM ---
CM Note CM Note Notes: 87 year old male admitted for severe carotid stenosis and recent fall with head injury. Has a limited hx of asthma and glaucoma. Had a L endarerectomy. Lives with his who would like him to be able to get some rehab before returning home. Therapies are recommending In-pt Rehab. Patient has [employer] Medicare Ins If patient not authorized for In-pt to check out SNF's: [facility], [facility] and [facility]. Referrals made. Date Signed: 12/24/2017 03:04 PM Electronically Signed By:Renay Bae LCSW
--- NOTE | 2017-12-24 15:35 | HOSPPROG ---
Hospitalist Progress Note Assessment/Plan: 87-year-old relatively healthy man with a history of asthma is admitted with a fall and ataxia. He fell a week ago and hit his head since then he has had poor p.o. intake due to poor appetite and increased ataxia. Of a evaluation in the ER did note critical stenosis of his carotid arteries and he is being admitted for further evaluation and treatment. # critical stenosis and bilateral carotid artery disease, status post endarterectomy by Dr. Torres yesterday. * Postop care by Dr. Torres * Will follow up with Dr. Torres as outpatient for CEA of other artery in a few weeks # encephalopathy: Patient still somewhat confused I suspect this is likely multifactorial from his head trauma as well as a recent anesthesia. Will order a speech cog eval * Continue to monitor, speech about # hyponatremia unclear etiology but possibly due to low solute intake. Medications do not appear to be causing. Other causes could be the head trauma. * Sodium improved * Continue to monitor # RAD. Currently on Singulair, will check with pharmacy to make sure that cannot cause hyponatremia. Subjective: Patient mildly confused but very hard of hearing and difficult to communicate with Objective: Vital Signs Temp Pulse Resp BP Pulse Ox 36.3 C 52 L 16 160/59 H 95 12/24/17 12:00 12/24/17 14:00 12/24/17 14:00 12/24/17 14:00 12/24/17 14:00 Laboratory Results 12/24/17 05:20 12/24/17 11:55 12/23/17 12/24/17 12/25/17 05:59 05:59 05:59 Intake Total 520 1167.1 Output Total 750 1075 Balance -230 92.1 PT 13.4 SEC (12.0-15.0) 12/22/17 19:00 INR 1.00 (0.83-1.16) 12/22/17 19:00 - Physical Exam Constitutional: no apparent distress, not in pain Eyes: PERRL Ears, Nose, Mouth, Throat: moist mucous membranes, other (Bandage on the left CEA) Cardiovascular: regular rate and rhythym Respiratory: no respiratory distress Gastrointestinal: soft, non-tender abdomen, No normoactive bowel sounds (Active but diminished) Skin: warm Neurologic: other (Moves all 4 extremities), No facial droop Psychiatric: not anxious ICD10 Worksheet Patient Problems: Problems Problem Status Onset Concussion Acute Scalp laceration Acute Carotid stenosis, bilateral Acute Transient confusion Acute Fall from chair Acute
[2017-12-24] MEDS: MONTELUKAST SODIUM 10 MG TAB PO SCH (17:48)
[2017-12-25 04:40] LABS: PLATELET COUNT 286 10^3/uL (150-400)
[2017-12-25] MEDS: KETOROLAC 0.5% 5 ML OPHT.BTL LEFTEYE SCH ×2 (09:46→21:40)
[2017-12-25] MEDS: ASPIRIN 81 MG CHEWABLE TAB PO SCH (09:46)
--- NOTE | 2017-12-25 10:11 | SOAPPROG ---
SOAP Progress Note Assessment/Plan: Assessment: 89 y/o male s/p left CEA 12/23/17 S: Doing well postoperatively. Pain well controlled. Pt's would like him to go to a SNF for rehab, although pt is somewhat resistant. O: Alert NAD Afebrile Left neck: Inc. CDI Neuro exam normal. Sodium improving. Up to 127 from 124 yesterday. Plan: Continue to monitor. PT and OT consults today. Consult case management for discharge to SNF. Increase asa from 81mg to 325mg and start Lovenox tomorrow. 12/25/17 10:07 12/25/17 10:53 Objective: Vital Signs Temp Pulse Resp BP Pulse Ox 36.9 C 74 14 177/79 H 91 L 12/25/17 07:14 12/25/17 07:14 12/25/17 07:14 12/25/17 09:46 12/25/17 07:14 Laboratory Results 12/25/17 04:01 12/25/17 04:01 12/24/17 12/25/17 12/26/17 05:59 05:59 05:59 Intake Total 1167.1 800 Output Total 1075 300 Balance 92.1 500 PT 13.4 SEC (12.0-15.0) 12/22/17 19:00 INR 1.00 (0.83-1.16) 12/22/17 19:00 ICD10 Worksheet Patient Problems: Problems Problem Status Onset Carotid stenosis, bilateral Acute Fall from chair Acute Transient confusion Acute Concussion Acute Scalp laceration Acute
[2017-12-25] MEDS ORDERED: ASPIRIN 81 MG CHEWABLE TAB PO SCH (10:14)
[2017-12-25] MEDS: ENALAPRILAT DIHYDRATE 1.25 MG/ML VIAL IVP PRN (10:37)
--- NOTE | 2017-12-25 12:59 | ASMTCMCOM ---
CM Note CM Note Notes: 12/25/2017 Case Management Note Reviewed case in rounds with and pt present. CT scan showed bleeding on the brain. All therapies recommending Inpatient Rehab. Notified Inpatient rehab of recommendations. Frannie at Inpatient rehab can be reached at [phone]. She is sending for authorization with [facility] today. Anticipating it will take 3 days for authorization. Case Management d/c poc: pending auth Inpatient Rehab. Case Management to follow. Date Signed: 12/25/2017 12:58 PM Electronically Signed By:Saida Castrejon RN
--- NOTE | 2017-12-25 13:03 | GOP ---
[f rep st] OPERATIVE REPORT Corrected report DATE OF OPERATION: 12/23/2017 SURGEON: Hubert Torres MD STARS ANALYTICAL LEAD: Debora Wallace P.A.-C. PREOPERATIVE DIAGNOSIS: Cerebral ischemia with a critical left carotid stenosis. POSTOPERATIVE DIAGNOSIS: Cerebral ischemia with a critical left carotid stenosis. PROCEDURE PERFORMED: Left carotid endarterectomy with EEG monitoring. FINDINGS: The patient was found to have a nearly complete occlusion of the internal carotid artery, although he had decent backflow. He had no EEG changes during the procedure both before after occlusion of the carotid. ESTIMATED BLOOD LOSS: Less than 100 cc. DESCRIPTION OF PROCEDURE: The patient taken to the operating room where he received satisfactory general endotracheal anesthesia by Dr. Amaya. He was placed in the supine position, prepped and draped in the usual sterile fashion. He had been systemically heparinized prior to the surgery but was given an additional bolus prior to the initiation of general anesthesia. He was prepped and draped in usual sterile fashion. A longitudinal incision was made along the anterior border of the sternocleidomastoid muscle and dissected down through the platysma and subcutaneous tissue and then through the superficial cervical fascia. The branches of the jugular vein were doubly ligated and divided exposing the carotid arterial tree. The common carotid, external carotid, internal carotid artery was eventually dissected free and controlled with vessel loops. It required division of the digastric tendon to reach the internal carotid artery above the stenosis. After adequate exposure was achieved additional heparin was given and the vessels were eventually occluded with vessel loops. Arteriotomy was made and extended up through the critical stenosis into the internal carotid artery and dissection extended above the stenotic area. Expeditious endarterectomy was then done, removing the plaque. All vessels were flushed. As mentioned before excellent backflow from the internal carotid stump. A shunt was placed anyway and flow was reestablished through the shunt. The operative bed was irrigated and any debris was removed from inside of the carotid artery, was then repaired with a Hemashield patch, secured in place with a running Hemashield 7 suture. As the suture line appeared to near the end , the shunt was removed. Vessels were again flushed. The patch closure suture line was completed. Flow was then 1st established through the external carotid artery and then through the internal carotid and the patient had no EEG changes or problems. Heparin was reversed with protamine. The wound was sprayed with some topical thrombin and hemostasis appeared to be adequate. The wound was closed in layers using 3-0 Vicryl for the cervical fascia, 3-0 Vicryl for the platysma and subcutaneous tissue and a 4-0 Monocryl subcuticular stitch for the skin. The wound was infiltrated with Marcaine. He was taken to recovery room in stable condition moving all extremities and following commands. He tolerated the procedure well. COMPLICATIONS: There were no complications. /[id number]/MODL Selvin LEVON, [birth year], katharine DRUMMOND
[2017-12-25] MEDS ORDERED: DESMOPRESSIN ACETATE IV ONE ×2 (13:06→13:15)
[2017-12-25] MEDS ORDERED: NS IV ONE ×2 (13:06→13:15)
--- NOTE | 2017-12-25 13:43 | GCON ---
[f rep st] CONSULTATION CHIEF COMPLAINT: Headache after fall. HISTORY OF PRESENT ILLNESS: Mr. Thomas is an 87-year-old male who was admitted to [facility] on 12/22/2017. He was found to have significant carotid stenosis. He was taken to the operat ing room by Dr. Torres on 12/23/2017 for a left-sided carotid endarterectomy. He was apparently in hi s room today when he fell and hit the floor. He underwent a CT scan of the brain which showed a subd ural hematoma. Neurosurgical consultation was requested. He currently complains of a mild headache. He denies any nausea or vomiting. He denies any new weakness. PAST MEDICAL HISTORY: 1. Carotid stenosis. 2. Asthma. 3. Glaucoma. MEDICATIONS PRIOR TO ADMISSION: Motrin, Zofran, albuterol, aspirin, ketorolac, Singulair, and propyl merritt glycol. ALLERGIES: Novocaine. FAMILY HISTORY: The patient has no family history of head trauma. 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 He is not a smoker. REVIEW OF SYSTEMS: Negative. PHYSICAL EXAMINATION: GENERAL: Patient is an 87-year-old male lying in bed, no apparent distress. H EENT: Head, eyes, ears, nose, and throat are negative to drainage. EXTREMITIES: [place], warm and dry. NEUROLOGICAL: Patient is awake, alert, oriented x4. Pupils equal, round, reactive to light. Extrao cular motions are intact. There is no evidence of facial droop. Tongue and uvula are midline. Spin al accessory muscles are intact. His motor strength is appears to be physiologic at 5/5 in his arms and legs. His sensation is grossly intact to light touch in his arms and legs. Deep tendon reflexes are 1+ out of 4 throughout. DIAGNOSTIC STUDIES: He has a head CT without contrast from [facility] on 12/25/2017 at 12:04, shows a frontal parafalcine subdural hematoma. This is associated with a left temporal tra umatic subarachnoid hemorrhage. There is no evidence of hydrocephalus. IMPRESSION: This is an 87-year-old male who is postoperative day #2 from a left-sided carotid endart erectomy. He has a frontal parafalcine subdural hematoma and a left temporal subarachnoid hemorrhage after a fall. He is neurologically stable. PLAN: All the above was discussed in detail with the patient and his . This patient was seen an d examined by Dr. Taylor. At this point time, we will move the patient to the step-down unit for q.[address] Aleman discussed this case with Dr. Edith Black. We will give the p atient DDAVP because he has been on aspirin. We will hold his aspirin as well. We will have him und ergo a repeat head CT without contrast at 6:00 p.m. abdiel. At this point in time, we will hold Kep pra unless there is any evidence of any seizure activity. Please call with any neurological changes. /[id number]/MODL
[2017-12-25] MEDS ORDERED: LIDOCAINE 2% JELLY 20 ML (UROJECT) ONE (14:13)
[2017-12-25] MEDS: hydrALAZINE 20 MG/ML VIAL IVP PRN ×2 (14:35→22:36)
--- NOTE | 2017-12-25 15:01 | ASMTCMCOM ---
CM Note CM Note Notes: Spoke with Frannie Chaparro from inpatient rehab who has started auth for patient through [facility]. It is unclear at this time when patient will be ready for d/c. Frannie will check back over the next 2 days to monitor patient's progress. CM will follow. Date Signed: 12/25/2017 02:54 PM Electronically Signed By:Jessica Morrell LCSW
--- NOTE | 2017-12-25 18:25 | HOSPPROG ---
Hospitalist Progress Note Assessment/Plan: * Bilateral carotid stenosis s/p left endarterectomy -eventual right endarterectomy needed as well -check lipids - would benefit from statin -hold ASA due to head bleed * Fall with traumatic SDH/SAH -neurosurgery consulted -repeat head CT at 6:00 pm -ddavp recommended as he received ASA this am -q1 neuro checks - transfer to SDU * Concussion s/p fall in [facility] -cognitive decline already before new bleed today * Hyponatremia due to SIADH -now worsening s/p DDAVP -consult renal CC time - 45 minutes Subjective: Fall at 8:30 this am - hit head. Subtle mental status change. Head CT ordered. New head bleed - SDH/SAH. Neurosurgery emergently consulted. Patient transferred to SDU for q1 hour neuro checks. Objective: Vital Signs Temp Pulse Resp BP Pulse Ox 36.9 C 66 18 141/67 H 100 12/25/17 07:14 12/25/17 16:00 12/25/17 16:00 12/25/17 16:00 12/25/17 16:00 Laboratory Results 12/25/17 04:01 12/25/17 17:00 12/24/17 12/25/17 12/26/17 05:59 05:59 05:59 Intake Total 1167.1 800 Output Total 1075 300 Balance 92.1 500 PT 13.4 SEC (12.0-15.0) 12/22/17 19:00 INR 1.00 (0.83-1.16) 12/22/17 19:00 d/w Dr. Adams neurosurgery - ddavp recommended as he is on ASA Head CT - new head bleed - reviewed with radiology Falling sodium reviewed with Dr. Taylor - renal will consult - NPO recommended - Physical Exam Constitutional: no apparent distress, appears nourished, not in pain Cardiovascular: regular rate and rhythym, no murmur, rub, or gallop Respiratory: no respiratory distress, no rales or rhonchi, clear to auscultation Gastrointestinal: normoactive bowel sounds, soft, non-tender abdomen, no palpable masses Skin: no rashes or abrasions, no fluctuance, no induration Neurologic: AAOx3, No weakness, No numbness Psychiatric: interacting appropriately, encephalopathic, No agitated ICD10 Worksheet Patient Problems: Problems Problem Status Onset Carotid stenosis, bilateral Acute Fall from chair Acute Transient confusion Acute Concussion Acute Scalp laceration Acute
[2017-12-25] MEDS: MONTELUKAST SODIUM 10 MG TAB PO SCH (21:37)
--- NOTE | 2017-12-25 22:54 | PDCONSULT ---
[place] Mechanic Note: Renal Consult CC: Fall HPI: The patient is an 87 y/o M with no PMH who presented to the ED on 12/22 for confusion after a fall that he had on a trip to [facility] and was found to have hyponatremia to 122mg/dL as well as critical L carotid stenosis and underwent endarterectomy. The patient was treated with fluid restriction and over the past few days his sodium heather to 127mg/dL, however on the floor yesterday he had another fall in the bathroom complicated by a subdural hemorrhage as well as a subarachnoid hemorrhage. He is extremely hard of hearing and does not feel like providing much more history, however, he is currently resting comfortably and his sons reportedly just left the hospital and felt that he is at his baseline mental status. Has a ellis in place and only making 30cc UO per hour. PMH: Asthma Social Hx: Retired, . Non-smoker, no ETOH. Family Hx: Parents , non-contributory. ROS: Negative 10-point review except as per HPI. Medications: None Allergies: Novacaine Objective: Temp Pulse Resp BP Pulse Ox 37.1 C 70 16 177/65 H 100 12/25/17 20:00 12/25/17 22:00 12/25/17 22:00 12/25/17 22:36 12/25/17 22:00 O2 (L/minute) 2 Physical Exam: Gen: Alert and oriented, resting comfortably HEENT: EOMI, hard of hearing Neck: Supple, no thyromegaly Lungs: CTA b/l Abd: Soft, NT, ND Ext: No edema Neuro: Non-focal, did not observe gait Skin: No rashes Psych: Cooperative, appropriate WBC 11.39 10^3/uL (3.80-9.50) H 12/25/17 04:01 RBC 4.02 10^6/uL (4.40-6.38) L 12/25/17 04:01 Hgb 13.8 g/dL (13.7-17.5) 12/25/17 04:01 POC Hgb 16.3 gm/dL (13.7-17.5) 12/22/17 18:50 Hct 38.4 % (40.0-51.0) L 12/25/17 04:01 POC Hct 48 % (40-51) 12/22/17 18:50 MCV 95.5 fL (81.5-99.8) 12/25/17 04:01 MCH 34.3 pg (27.9-34.1) H 12/25/17 04:01 MCHC 35.9 g/dL (32.4-36.7) 12/25/17 04:01 RDW 11.5 % (11.5-15.2) 12/25/17 04:01 Plt Count 286 10^3/uL (150-400) 12/25/17 04:01 MPV 9.7 fL (8.7-11.7) 12/25/17 04:01 Neut % (Auto) 66.0 % (39.3-74.2) 12/25/17 04:01 Lymph % (Auto) 16.2 % (15.0-45.0) 12/25/17 04:01 [place] % (Auto) 15.1 % (4.5-13.0) H 12/25/17 04:01 Eos % (Auto) 0.6 % (0.6-7.6) 12/25/17 04:01 Baso % (Auto) 0.3 % (0.3-1.7) 12/25/17 04:01 Nucleat RBC Rel Count 0.0 % (0.0-0.2) 12/25/17 04:01 Absolute Neuts (auto) 7.52 10^3/uL (1.70-6.50) H 12/25/17 04:01 Absolute Lymphs (auto) 1.85 10^3/uL (1.00-3.00) 12/25/17 04:01 Absolute Monos (auto) 1.72 10^3/uL (0.30-0.80) H 12/25/17 04:01 Absolute Eos (auto) 0.07 10^3/uL (0.03-0.40) 12/25/17 04:01 Absolute Basos (auto) 0.03 10^3/uL (0.02-0.10) 12/25/17 04:01 Absolute Nucleated RBC 0.00 10^3/uL (0-0.01) 12/25/17 04:01 Immature Gran % 1.8 % (0.0-1.1) H 12/25/17 04:01 Immature Gran # 0.20 10^3/uL (0.00-0.10) H 12/25/17 04:01 PT 13.4 SEC (12.0-15.0) 12/22/17 19:00 INR 1.00 (0.83-1.16) 12/22/17 19:00 APTT 29.7 SEC (23.0-38.0) 12/22/17 19:00 Heparin Anti-Xa, Unfract 0.40 IU/mL (0.32-0.67) 12/23/17 10:14 Puncture Site NONE GIVEN 12/23/17 18:22 Patient Temperature 37.0 DEGREES 12/23/17 18: pCO2 35 mmHg (34-38) 12/23/17: pO2 195 mmHg (65-75) H 12/23/17 18: Total CO2 24 mEq/L (23-27) 12/23/17 18: ABG pH 7.44 (7.35-7.45) 12/23/17: ABG PO2/FiO2 Ratio Cancelled 12/23/17: ABG HCO3 23 mEq/L (22-26) 12/23/17 18: ABG O2 Sat (Calculated) Cancelled 12/23/17 18: ABG O2 Saturation 99 % (92-95) H 12/23/17 18:22 ABG Base Excess 0.0 mEq/L (-2.5-2.5) 12/23/17 18: ABG Hemoglobin 13.6 gm/dL (14.5-17.3) L 12/23/17 Total O2 Concentration Cancelled 12/23/17: O2 Concentration % Cancelled 12/23/17: POC Sodium 122 mEq/L (137-146) L 12/23/17 POC Potassium 3.5 mEq/L (3.3-5.0) 12/23/17 18: Respiration Rate Cancelled 12/23/17 18: Actual Respiration Rate Cancelled 12/23/17 18: Set Respiration Rate Cancelled 12/23/17 18: SIMV Cancelled 12/23/17 18: Assist Control Cancelled 12/23/17 Vent Rate Cancelled 02/12/18 18:22 Inspiratory Time Cancelled 12/23/17 18:22 Expiratory Pressure Cancelled 12/23/17 18:22 Tidal Volume Cancelled 12/23/17 18:22 End Tidal CO2 Cancelled 12/23/17 18:22 PEEP Cancelled 12/23/17 18:22 Inspiratory Pressure Cancelled 12/23/17 18:22 Peak Inspir Pressure Cancelled 12/23/17 18:22 Pressure Support Cancelled 12/23/17 18:22 Pressure Control Cancelled 12/23/17 18:22 CPAP Cancelled 12/23/17 18:22 BiPAP Cancelled 12/23/17 18:22 Mode BiPAP Cancelled 12/23/17 18:22 Inspir/Expir Ratio Cancelled 12/23/17 18:22 POC Sodium 124 mEq/L (135-145) L 12/22/17 18:50 Sodium 122 mEq/L (135-145) L 12/25/17 20:30 POC Potassium 3.8 mEq/L (3.3-5.0) 12/22/17 18:50 Potassium 3.9 mEq/L (3.5-5.2) 12/25/17 20:30 POC Chloride 85 mEq/L (97-110) L 12/22/17 18:50 Chloride 90 mEq/L (97-110) L 12/25/17 20:30 Carbon Dioxide 22 mEq/l (22-31) 12/25/17 20:30 Anion Gap 10 mEq/L (8-16) 12/25/17 20:30 POC BUN 18 mg/dL (7-23) 12/22/17 18:50 BUN 16 mg/dL (7-23) 12/25/17 20:30 Creatinine 0.6 mg/dL (0.7-1.3) L 12/25/17 20:30 POC Creatinine 0.9 mg/dL (0.7-1.3) 12/22/17 18:50 Estimated GFR > 60 12/25/17 20:30 Glucose 101 mg/dL (70-100) H 12/25/17 20:30 POC Glucose 120 mg/dL (70-100) H 12/22/17 18:50 Calcium 9.1 mg/dL (8.5-10.4) 12/25/17 20:30 Ionized Calcium 1.09 MMOL/L (1.12-1.30) L 12/23/17 18:22 Total Bilirubin 1.1 mg/dL (0.1-1.4) 12/25/17 04:01 AST 23 IU/L (17-59) 12/25/17 04:01 ALT 32 IU/L (21-72) 12/25/17 04:01 Alkaline Phosphatase 67 IU/L (38-126) 12/25/17 04:01 Troponin I < 0.012 ng/mL (0.000-0.034) 12/22/17 19:00 Total Protein 6.3 g/dL (6.3-8.2) 12/25/17 04:01 Albumin 3.2 g/dL (3.5-5.0) L 12/25/17 04:01 Urine Color YELLOW 12/22/17 23:00 Urine Appearance CLEAR 12/22/17 23:00 Urine pH 6.0 (5.0-7.5) 12/22/17 23:00 Ur Specific Harvey > 1.035 (1.002-1.030) H 12/22/17 23:00 Urine Protein NEGATIVE (NEGATIVE) 12/22/17 23:00 Urine Ketones TRACE (NEGATIVE) H 12/22/17 23:00 Urine Blood NEGATIVE (NEGATIVE) 12/22/17 23:00 Urine Nitrate NEGATIVE (NEGATIVE) 12/22/17 23:00 Urine Bilirubin NEGATIVE (NEGATIVE) 12/22/17 23:00 Urine Urobilinogen 4.0 EU (0.2-1.0) H 12/22/17 23:00 Ur Leukocyte Esterase NEGATIVE (NEGATIVE) 12/22/17 23:00 Urine Osmolality 602 mosmo/kg (300-900) 12/23/17 13:36 Ur Random Creatinine 123.4 mg/dL 12/23/17 13:36 Ur Random Sodium 85 mEq/L (30-90) 12/23/17 13:36 Urine Glucose NEGATIVE (NEGATIVE) 12/22/17 23:00 Ethyl Alcohol < 10 mg/dL (0-10) 12/22/17 19:00 Imaging: CT results reviewed. A/P: The patient is an 87 y/o M who presented with hyponatremia consistent with SIADH which improved with fluid restriction, however, his hospitalization was complicated by a fall with a subdural hemorrhage and subarachnoid hemorrhage while on aspirin and was given ddAVP now with expected subsequent worsening of sodium to 122mg/dL. He is currently stable from a neurologic standpoint. Will continue to fluid restrict and may need to add lasix in the AM. Hyponatremia -unclear initial etiology and concern as he was having issues with gait on vacation -send TSH, CXR -resent urine studies in AM -continue to monitor q4h with neuro checks -accurate UO -keep NPO tonight -goal 128-130 by tomorrow -hold ddAVP unless bleeding Fall with SDH/SAH -s/p aspirin this AM -fall precautions -neurosurgery following HTN -BP's elevated to 170's tonight -hydralazine prn -on amlodipine 5mg -consider diuretic pending clinical course S/p endarterectomy -CT surgery following -holding aspirin for now Thank you for this consult will continue to follow. Please contact with ?s. #.
[2017-12-26 05:03] LABS: PLATELET COUNT 265 10^3/uL (150-400)
--- NOTE | 2017-12-26 07:34 | NEUSURGPN ---
Assessment/Plan: Assessment: 87 yo male that is s/p carotid surgery with Dr Torres and javier that has SDH and SAH bleeding Plan: -pt fell in hospital room and had SDH/SAH-repeat CT of the head shows improving SAH and stable SDH -pt is awake and alert -neuro stable -PT/OT/ST -holding ASA -continue to follow -d/w Dr Adams -warning signs given -call with any questions or concerns Subjective: Awake and alert. NAD. Eating/drinking and voiding. No f/c/n/v/d. No man/cp/ sob/abd or gu complaints. Objective: AAO x 3, PERRLA/EOMI no droop CN 2-12 grossly intact +lt touch 5/5 BUE/BLE = Neuro Check Frequency: per routine Urinary Catheter in Place: No - Physician Discussed Patient with : Claudia Patient Seen by : Claudia Neurosurgery Physical Exam - Vitals, I&O, Labs I and O 12/25/17 12/26/17 12/27/17 05:59 05:59 05:59 Intake Total 800 Output Total 300 725 Balance 500 -725 Intake: Oral (ml) 800 Output: Urine (ml) 300 725 Catheter 725 Toilet 300 Other: Number of Voids Bedside Commode 1 1 Toilet 1 Vital Signs Temp Pulse Resp BP Pulse Ox 37 C 82 16 152/53 H 96 12/26/17 06:00 12/26/17 06:00 12/26/17 06:00 12/26/17 06:00 12/26/17 06:00 Laboratory Results 12/26/17 05:00 12/26/17 05:00 ICD10 Worksheet Patient Problems: Problems Problem Status Onset Carotid stenosis, bilateral Acute Fall from chair Acute Transient confusion Acute Concussion Acute Scalp laceration Acute
[2017-12-26] MEDS: hydrALAZINE 20 MG/ML VIAL IVP PRN (08:05)
[2017-12-26] MEDS: KETOROLAC 0.5% 5 ML OPHT.BTL LEFTEYE SCH ×2 (08:11→21:05)
[2017-12-26] MEDS ORDERED: ENOXAPARIN 40 MG/0.4 ML SYR SC SCH (09:00)
[2017-12-26] MEDS ORDERED: ASPIRIN 325 MG TAB PO SCH (09:00)
--- NOTE | 2017-12-26 09:28 | PDINTPN ---
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 Underwent CEA 12/23 without complication, but had additional fall in hospital room 12/25/17. Head CT showed SDH/SAH and evaluated by neurosurgery. No operative intervention but in SDU for close neuro checks. Also found to have Na 122 on admission, likely from SIADH. * Carotid stenosis- stable postop course from this persepective. Incision clean and dry today * SDH/SAH- followed by neurosurgery and stable on repeat CT. Will need PT/OT and home safety eval given falls * SIADH- Sodium 125 today and rising * Subjective: no complaints. Did not recall fall from 12/25/17 Objective: Vital Signs Temp Pulse Resp BP Pulse Ox 36.9 C 80 13 143/62 H 98 12/26/17 07:39 12/26/17 08:43 12/26/17 07:39 12/26/17 08:43 12/26/17 07:39 Laboratory Results 12/26/17 05:00 12/25/17 12/26/17 12/27/17 05:59 05:59 05:59 Intake Total 800 Output Total 300 725 Balance 500 -725 PT 13.4 SEC (12.0-15.0) 12/22/17 19:00 INR 1.00 (0.83-1.16) 12/22/17 19:00 Physical Exam - Physical Exam General Appearance: alert, no apparent distress EENT: PERRL/EOMI Neck: non-tender, supple Respiratory: lungs clear, normal breath sounds, No respiratory distress, No accessory muscle use Cardiac/Chest: regular rate, rhythm, No edema Abdomen: non-tender, soft, No distended Skin: normal color, warm/dry, No cyanosis Lymphatic: no adenopathy Extremities: No pedal edema Neuro/Psych: alert, normal mood/affect, cognition abnormalities ICD10 Worksheet Patient Problems: Problems Problem Status Onset Carotid stenosis, bilateral Acute Fall from chair Acute Transient confusion Acute Concussion Acute Scalp laceration Acute
--- NOTE | 2017-12-26 14:26 | HOSPPROG ---
Hospitalist Progress Note Assessment/Plan: 87 yo M w b/l carotid stenosis and hyponatremia Bilateral carotid stenosis s/p left endarterectomy -eventual right endarterectomy needed as well -check lipids - would benefit from statin -hold ASA due to head bleed Fall with traumatic SDH/SAH -neurosurgery consulted bleed stable Concussion s/p fall in [facility] -cognitive decline already before new bleed today Hyponatremia due to SIADH has stabilized at 125 continue fluid restriction repeat in AM proph: contraindication to LMWH dispo: inpt Subjective: case discussed at length w dr goldsmith Objective: Vital Signs Temp Pulse Resp BP Pulse Ox 36.8 C 76 18 145/61 H 98 12/26/17 11:52 12/26/17 11:52 12/26/17 11:52 12/26/17 11:52 12/26/17 11:52 Laboratory Results 12/26/17 05:00 12/26/17 09:10 12/25/17 12/26/17 12/27/17 05:59 05:59 05:59 Intake Total 800 Output Total 300 725 Balance 500 -725 PT 13.4 SEC (12.0-15.0) 12/22/17 19:00 INR 1.00 (0.83-1.16) 12/22/17 19:00 - Physical Exam Constitutional: no apparent distress, appears nourished Eyes: PERRL, anicteric sclera Ears, Nose, Mouth, Throat: moist mucous membranes, hearing normal Cardiovascular: regular rate and rhythym, no murmur, rub, or gallop Respiratory: no respiratory distress, no rales or rhonchi Gastrointestinal: normoactive bowel sounds, soft, non-tender abdomen Genitourinary: no bladder fullness, No ellis in urethra Skin: warm, normal color Musculoskeletal: full muscle strength, no muscle tenderness Neurologic: AAOx3, sensation intact bilaterally ICD10 Worksheet Patient Problems: Problems Problem Status Onset Carotid stenosis, bilateral Acute Fall from chair Acute Transient confusion Acute Concussion Acute Scalp laceration Acute
--- NOTE | 2017-12-26 14:35 | ASMTCMCOM ---
CM Note CM Note Notes: Met with patient's Dea to answer questions about the d/c plan. It is not clear yet if patient will be able to do inpatient rehab or will need SNF rehab. Patient continues to have issues with falling and his sodium levels are on the rise today. Dea, patient's states [facility] is their choice if patient cannot do inpatient rehab with [facility]. Frannie from [facility] met with the family today and explained their services. Explained to Dea, as soon as the decision was made around level of care, we would make arrangements for admit and transfer there. CM will follow. Date Signed: 12/26/2017 02:35 PM Electronically Signed By:Jessica Morrell LCSW
--- NOTE | 2017-12-26 17:25 | SOAPPROG ---
SOAP Progress Note Assessment/Plan: Assessment: 89 y/o male s/p left CEA 12/23/17 S/p fall 12/25 with SDH, SAH Appreciate neurosurgery input. S: Eating and drinking well. Voiding spontaneously. Getting somewhat restless in bed. Denies headaches. No complaints of pain. O: Afebrile Alert NAD Left neck: Inc. CDI CN 2-12 grossly intact Sodium continues to be low. Plan: Continue to monitor. PT/OT. Consult case management for discharge to SNF. Hold asa. 12/26/17 17:19 Objective: Vital Signs Temp Pulse Resp BP Pulse Ox 36.8 C 79 20 139/68 H 94 12/26/17 16:31 12/26/17 16:31 12/26/17 16:31 12/26/17 16:31 12/26/17 16:31 Laboratory Results 12/26/17 05:00 12/26/17 09:10 12/25/17 12/26/17 12/27/17 05:59 05:59 05:59 Intake Total 800 Output Total 300 725 Balance 500 -725 PT 13.4 SEC (12.0-15.0) 12/22/17 19:00 INR 1.00 (0.83-1.16) 12/22/17 19:00 ICD10 Worksheet Patient Problems: Problems Problem Status Onset Carotid stenosis, bilateral Acute Fall from chair Acute Transient confusion Acute Concussion Acute Scalp laceration Acute
[2017-12-26] MEDS: MONTELUKAST SODIUM 10 MG TAB PO SCH (17:57)
[2017-12-26] MEDS: ACETAMINOPHEN 325 MG TAB PO PRN (21:05)
[2017-12-27] MEDS: hydrALAZINE 20 MG/ML VIAL IVP PRN (04:11)
[2017-12-27 06:05] LABS: PLATELET COUNT 306 10^3/uL (150-400)
--- NOTE | 2017-12-27 07:51 | NEUSURGPN ---
Assessment/Plan: Assessment: 87 yo male that is s/p carotid surgery with Dr Torres and javier that has SDH and SAH bleeding Plan: -pt fell in hospital room and had SDH/SAH-repeat CT of the head shows improving SAH and stable SDH -neuro stable -PT/OT/ST -plan for repeat head CT in 2 weeks -ok to resume ASA from our standpoint starting tomorrow 12/28 -will sign off and follow peripherally, please contact us with any questions/ concerns -follow up with Dr. Adams in 2 weeks with repeat head CT Discussed with Dr. Adams. Subjective: No headache, nausea, vomiting. No overnight issues. Objective: Awake. Alert. Facial expression symmetrical Speech fluent Muscle strength full at 5/5 Catheter Insertion Date: 12/25/17 - Physician Discussed Patient with : Claudia Neurosurgery Physical Exam - Vitals, I&O, Labs I and O 12/26/17 12/27/17 12/28/17 05:59 05:59 05:59 Intake Total 750 Output Total 725 700 Balance -725 50 Intake: Oral (ml) 750 Output: Urine (ml) 725 700 Catheter 725 700 Other: Intake Quantity No Sufficient Number of Voids Bedside Commode 1 Vital Signs Temp Pulse Resp BP Pulse Ox 37.0 C 75 15 143/50 H 95 12/27/17 07:46 12/27/17 07:46 12/27/17 07:46 12/27/17 07:46 12/27/17 07:46 Laboratory Results 12/27/17 06:00 12/27/17 06:00 ICD10 Worksheet Patient Problems: Problems Problem Status Onset Carotid stenosis, bilateral Acute Fall from chair Acute Transient confusion Acute Concussion Acute Scalp laceration Acute
--- NOTE | 2017-12-27 08:06 | NEUROPROG ---
Assessment: Total unit time was 25 min. The patient has been relatively stable over the last 48 hr, although had mild setback with his head trauma and small amount of non life-threatening hemorrhage. He will continue to be monitored for neurologic stability. Neurosurgery is also following his case. Please contact me for any additional questions. The goal would still be to eventually perform endarterectomy on the right internal carotid artery. Subjective: Following up on patient who is now 2 days status post fall with small subdural on posttraumatic subarachnoid hemorrhage. He is also status post left carotid endarterectomy. He remains a little bit slow in his conversation, but he says his headache is mild. He denies focal numbness or weakness in the extremities. He has been able to eat. Objective: Vital Signs Temp Pulse Resp BP Pulse Ox 37.0 C 75 15 143/50 H 95 12/27/17 07:46 12/27/17 07:46 12/27/17 07:46 12/27/17 07:46 12/27/17 07:46 Laboratory Results 12/27/17 06:00 12/27/17 06:00 12/26/17 12/27/17 12/28/17 05:59 05:59 05:59 Intake Total 750 Output Total 725 700 Balance -725 50 PT 13.4 SEC (12.0-15.0) 12/22/17 19:00 INR 1.00 (0.83-1.16) 12/22/17 19:00 He is awake but lethargic. He is oriented to the location and the month and the year. He can follow my instructions. His words seem slightly soft and maybe a bit hoarse. I do not detect focal numbness or weakness. Follow-up imaging of the head has shown stability of the bleeding. No evidence of acute stroke. There are remote strokes present. Allergies/Adverse Reactions: novacaine Allergy (Uncoded 12/22/17 20:37) Other-Enter Comments
--- NOTE | 2017-12-27 09:12 | SOAPPROG ---
SOAP Progress Note Assessment/Plan: Assessment: 87 MALE WITH VAGUE SYMPTOMS FOLLOWING A FALL 0NE WEEK AGO HE FOUND TO HAVE A VERY CRITICAL LEFT CAROTID STENOSIS WITH MARKEDLY DECREASED PERFUSION OF LEFT CEREBRUM NO ACUTE HEAD FINDINGS BUT SMALL SMALL OLD CVAS ON LEFT RT CAROTID HAS A 80% STENOSIS WELL/ VERTEBRALS ARE OPEN RISKS AND OPTIONS DISCUSSED WITH PT WHO WISHES TO CONFER WITH NO PAST HX OF CARDIAC ISSUES Plan:RECCOMMEND URGENT CEA AND HEPARIN UNTIL THEN/ NPO 12/23/17 09:02 12/24/17 09:22 POSTOP ALERT, VS STABLE, NEURO INTACT, AFEBRILE, WOUND OK, STILL HYPONATREMIC AT 124 12/27/17 09:11 AFEBRILE, VS OK/ WOUND OK/ NEURO STABLE EXCEPT FOR INTERMITTENT CONFUSION/ RESTART ASA Objective: Vital Signs Temp Pulse Resp BP Pulse Ox 37.0 C 75 15 143/50 H 95 12/27/17 07:46 12/27/17 07:46 12/27/17 07:46 12/27/17 07:46 12/27/17 07:46 Laboratory Results 12/27/17 06:00 12/27/17 06:00 12/26/17 12/27/17 12/28/17 05:59 05:59 05:59 Intake Total 750 Output Total 725 700 Balance -725 50 PT 13.4 SEC (12.0-15.0) 12/22/17 19:00 INR 1.00 (0.83-1.16) 12/22/17 19:00 ICD10 Worksheet Patient Problems: Problems Problem Status Onset Carotid stenosis, bilateral Acute Fall from chair Acute Transient confusion Acute Concussion Acute Scalp laceration Acute
--- NOTE | 2017-12-27 09:34 | SOAPPROG ---
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 Hyponatremia -unclear initial etiology and concern as he was having issues with gait on vacation -TSH WNL, cortisol AM>20 -continue to monitor q4h with neuro checks -accurate UO -fluid restriction 1.2L -may allow to normalize >24h out -hold ddAVP unless bleeding -given one dose lasix 20mg IV -resend urine studies now Fall with SDH/SAH -s/p aspirin -fall precautions -neurosurgery following HTN -BP's elevated and on amlodipine as well as enalapril and hydralazine prn -hold amlodipine for lasix S/p endarterectomy -CT surgery following -holding aspirin for now Please contact with ?s. #[phone]. 12/27/17 09:39 Subjective: Making better UO. Very hard of hearing but mental status seems stable. Objective: Vital Signs Temp Pulse Resp BP Pulse Ox 37.0 C 75 15 143/50 H 95 12/27/17 07:46 12/27/17 07:46 12/27/17 07:46 12/27/17 07:46 12/27/17 07:46 Laboratory Results 12/27/17 06:00 12/27/17 06:00 12/26/17 12/27/17 12/28/17 05:59 05:59 05:59 Intake Total 750 Output Total 725 700 Balance -725 50 PT 13.4 SEC (12.0-15.0) 12/22/17 19:00 INR 1.00 (0.83-1.16) 12/22/17 19:00 Physical Exam - Physical Exam General Appearance: WD/WN, alert, no apparent distress EENT: PERRL/EOMI, normal ENT inspection, TMs normal Neck: non-tender, full range of motion, supple Respiratory: lungs clear, normal breath sounds Cardiac/Chest: normal peripheral pulses, regular rate, rhythm Abdomen: normal bowel sounds, non-tender, soft Skin: normal color, warm/dry Extremities: normal range of motion, non-tender Neuro/Psych: no motor/sensory deficits, alert, normal mood/affect, oriented x 3 ICD10 Worksheet Patient Problems: Problems Problem Status Onset Carotid stenosis, bilateral Acute Fall from chair Acute Transient confusion Acute Concussion Acute Scalp laceration Acute
[2017-12-27] MEDS ORDERED: FUROSEMIDE 20 MG/2 ML VIAL IVP ONE (09:38)
[2017-12-27] MEDS: ASPIRIN 81 MG CHEWABLE TAB PO SCH (10:22)
[2017-12-27] MEDS: ATORVASTATIN CALCIUM 20 MG TAB PO SCH (10:30)
[2017-12-27] MEDS: KETOROLAC 0.5% 5 ML OPHT.BTL LEFTEYE SCH ×2 (10:35→20:01)
--- NOTE | 2017-12-27 14:37 | HOSPPROG ---
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 sodium improving. alert Objective: Vital Signs Temp Pulse Resp BP Pulse Ox 36.9 C 66 12 144/62 H 93 12/27/17 11:49 12/27/17 11:49 12/27/17 11:49 12/27/17 11:49 12/27/17 11:49 Laboratory Results 12/27/17 06:00 12/27/17 10:00 12/26/17 12/27/17 12/28/17 05:59 05:59 05:59 Intake Total 750 Output Total 725 700 Balance -725 50 PT 13.4 SEC (12.0-15.0) 12/22/17 19:00 INR 1.00 (0.83-1.16) 12/22/17 19:00 - Physical Exam Constitutional: no apparent distress, appears nourished Eyes: PERRL, anicteric sclera Ears, Nose, Mouth, Throat: moist mucous membranes, hearing normal Cardiovascular: regular rate and rhythym, no murmur, rub, or gallop Respiratory: no respiratory distress, no rales or rhonchi Gastrointestinal: normoactive bowel sounds, soft, non-tender abdomen Genitourinary: no bladder fullness, ellis in urethra Skin: warm, normal color Musculoskeletal: full muscle strength, no muscle tenderness Neurologic: AAOx3 Psychiatric: interacting appropriately ICD10 Worksheet Patient Problems: Problems Problem Status Onset Carotid stenosis, bilateral Acute Fall from chair Acute Transient confusion Acute Concussion Acute Scalp laceration Acute
--- NOTE | 2017-12-27 14:50 | ASMTCMCOM ---
CM Note CM Note Notes: Met with patient's Dea who was upset about a 5th CT scan that has been ordered as a 2 week followup after her 's discharge. Contacted the [facility] to let them know this CT scan needs pre approval through patient's insurance, [employer]. Dr. Vizcarra addressed Dea's questions in rounds regarding why the CT scan is important and then let her know she can choose but it could be a life and situation. CM will follow. Date Signed: 12/27/2017 02:49 PM Electronically Signed By:Jessica Morrell LCSW
[2017-12-27] MEDS ORDERED: MAGNESIUM HYDROXIDE 30 ML UDCUP PO PRN (16:40)
[2017-12-27] MEDS ORDERED: POLYETHYLENE GLYCOL 3350 17 GM PKT PO PRN (16:40)
[2017-12-27] MEDS ORDERED: BISACODYL 10 MG SUPP PR PRN (16:40)
[2017-12-27] MEDS ORDERED: LACTULOSE 20 GM/30 ML UDCUP PO PRN (16:40)
[2017-12-27] MEDS: MONTELUKAST SODIUM 10 MG TAB PO SCH (17:54)
[2017-12-27] MEDS: SENNOSIDES/DOCUSATE SODIUM TAB PO SCH (19:57)
[2017-12-27] MEDS ORDERED: SODIUM CHLORIDE 1,000 MG TAB PO ONE (23:30)
[2017-12-28] MEDS: ACETAMINOPHEN 325 MG TAB PO PRN (08:56)
[2017-12-28] MEDS: SENNOSIDES/DOCUSATE SODIUM TAB PO SCH ×2 (08:56→21:13)
[2017-12-28] MEDS: SODIUM CHLORIDE 1,000 MG TAB PO SCH ×3 (08:57→21:13)
[2017-12-28] MEDS: ASPIRIN EC 81 MG TAB PO SCH (08:58)
[2017-12-28] MEDS: ATORVASTATIN CALCIUM 20 MG TAB PO SCH (08:58)
[2017-12-28] MEDS: ASPIRIN 81 MG CHEWABLE TAB PO SCH (09:09)
[2017-12-28] MEDS: KETOROLAC 0.5% 5 ML OPHT.BTL LEFTEYE SCH ×2 (09:10→21:15)
--- NOTE | 2017-12-28 10:14 | SOAPPROG ---
[facility] Progress Note Assessment/Plan: Assessment/Plan: 79-year-old male status post left carotid end arterectomy status post fall with head bleed and hyponatremia - this is my 1st interaction with the patient but was told that previously he had been confused, this appears to have resolved today. The patient is alert, oriented, aware of placed time and situation. His left neck is clean dry and intact and soft, the Steri-Strips are in place and peeling off. Plan will be to restart his baby aspirin today which has been verified by Neurosurgery. Hyponatremia persist, likely chronic. Planning long-term placement with medicine, no issues with discharge to [facility] facility today from surgical standpoint, will need to follow up with Dr. Torres to address contralateral carotid. 12/28/17 10:13 Subjective: Alert and oriented, does not appear confused at all Objective: Vital Signs Temp Pulse Resp BP Pulse Ox 36.8 C 69 15 142/70 H 94 12/28/17 08:00 12/28/17 08:00 12/28/17 08:00 12/28/17 08:00 12/28/17 08:00 Laboratory Results 12/27/17 06:00 12/28/17 08:25 12/27/17 12/28/17 12/29/17 05:59 05:59 05:59 Intake Total 750 740 Output Total 700 1175 Balance 50 -435 PT 13.4 SEC (12.0-15.0) 12/22/17 19:00 INR 1.00 (0.83-1.16) 12/22/17 19:00 ICD10 Worksheet Patient Problems: Problems Problem Status Onset Carotid stenosis, bilateral Acute Fall from chair Acute Transient confusion Acute Concussion Acute Scalp laceration Acute
--- NOTE | 2017-12-28 11:03 | HOSPPROG ---
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 case d/w dr caldwell Objective: Vital Signs Temp Pulse Resp BP Pulse Ox 36.8 C 69 15 142/70 H 94 12/28/17 08:00 12/28/17 08:00 12/28/17 08:00 12/28/17 08:00 12/28/17 08:00 Laboratory Results 12/27/17 06:00 12/28/17 08:25 12/27/17 12/28/17 12/29/17 05:59 05:59 05:59 Intake Total 750 740 Output Total 700 1175 Balance 50 -435 PT 13.4 SEC (12.0-15.0) 12/22/17 19:00 INR 1.00 (0.83-1.16) 12/22/17 19:00 - Physical Exam Constitutional: no apparent distress, appears nourished Eyes: PERRL, anicteric sclera Ears, Nose, Mouth, Throat: moist mucous membranes, hearing normal Cardiovascular: regular rate and rhythym, no murmur, rub, or gallop Respiratory: no respiratory distress, no rales or rhonchi Gastrointestinal: normoactive bowel sounds, soft, non-tender abdomen Genitourinary: no bladder fullness, No ellis in urethra Skin: warm, normal color Musculoskeletal: full muscle strength ICD10 Worksheet Patient Problems: Problems Problem Status Onset Carotid stenosis, bilateral Acute Fall from chair Acute Transient confusion Acute Concussion Acute Scalp laceration Acute
--- NOTE | 2017-12-28 11:23 | PDINTPN ---
Director Of [facility] Progress Note Assessment/Plan: Assessment/Plan: 87 M s/p multiple falls including DOA 12/22/17 and found to have severe carotid stensis. Underwent CEA 12/23 without complication, but had additional fall in hospital room 12/25/17. Head CT showed SDH/SAH and evaluated by neurosurgery. No operative intervention but in SDU for close neuro checks. Also found to have Na 122 on admission, likely from SIADH. * Carotid stenosis- stable postop course from this persepective. Incision clean and dry today * SDH/SAH- followed by neurosurgery and stable on repeat CT. Will need SNF for rehab on discharge. Continue PT/OT while here * SIADH- Sodium 127 today and rising. On fluid restriction and salt tabs. Sodium being followed closely. * History a asthma-doing well, on montelukast and as needed albuterol. Can transfer to PCU today. Will need bed alarm, walker, assistance with bathroom and transfers Subjective: Doing well, no specific complaints. Using walker, working with PT Objective: Vital Signs Temp Pulse Resp BP Pulse Ox 36.8 C 69 15 142/70 H 94 12/28/17 08:00 12/28/17 08:00 12/28/17 08:00 12/28/17 08:00 12/28/17 08:00 Laboratory Results 12/27/17 06:00 12/28/17 08:25 12/27/17 12/28/17 12/29/17 05:59 05:59 05:59 Intake Total 750 740 Output Total 700 1175 Balance 50 -435 PT 13.4 SEC (12.0-15.0) 12/22/17 19:00 INR 1.00 (0.83-1.16) 12/22/17 19:00 Physical Exam - Physical Exam General Appearance: alert, no apparent distress, other (Hard of hearing) EENT: other (On room air) Neck: normal inspection (No JVD. Incision on left fine) Respiratory: lungs clear, decreased breath sounds Cardiac/Chest: regular rate, rhythm, systolic murmur, No gallop Abdomen: normal bowel sounds, non-tender, soft Skin: normal color, warm/dry Extremities: No pedal edema Neuro/Psych: no motor/sensory deficits, No cognition abnormalities ICD10 Worksheet Patient Problems: Problems Problem Status Onset Concussion Acute Scalp laceration Acute Carotid stenosis, bilateral Acute Transient confusion Acute Fall from chair Acute
--- NOTE | 2017-12-28 17:04 | SOAPPROG ---
GER[facility] Progress Note Assessment/Plan: Assessment: The patient is an 87 y/o M who presented with a fall and severe L carotid artery stenosis as well as hyponatremia consistent with SIADH now s/p endarterectomy complicated by a fall and given ddAVP with subsequent expected worsening of hyponatremia. 1. Hyponatremia -unclear initial etiology and concern as he was having issues with gait on vacation -TSH WNL, cortisol AM>20 -Follow I/O -fluid restriction 1.2L -hold ddAVP unless bleeding -given one dose lasix 20mg IV -Started salt tabs -Improving appropriately by 6 mmol/L in last 24 hours, ok to drop Na check to Q12 now that it is in 130s 2. Fall with SDH/SAH -s/p aspirin -fall precautions -neurosurgery following 3. HTN -BP's now well-controlled and on amlodipine as well as enalapril and hydralazine prn -hold amlodipine for lasix 4. S/p endarterectomy -CT surgery following -holding aspirin for now Please contact with ?s. #[phone]. Plan: 12/28/17 17:04 Subjective: Feels ok, no c/o. Has moderate appetite. Objective: Vital Signs Temp Pulse Resp BP Pulse Ox 36.6 C 74 20 120/69 94 12/28/17 12:00 12/28/17 16:18 12/28/17 16:18 12/28/17 16:18 12/28/17 16:18 Laboratory Results 12/27/17 06:00 12/28/17 16:00 12/27/17 12/28/1718 05:59 05:59 05:59 Intake Total 750 740 Output Total 700 1175 100 Balance 50 -435 -100 PT 13.4 SEC (12.0-15.0) 12/22/17 19:00 INR 1.00 (0.83-1.16) 12/22/17 19:00 Physical Exam - Physical Exam General Appearance: WD/WN Neck: other (L neck incision well-approximated) Respiratory: lungs clear Cardiac/Chest: regular rate, rhythm Abdomen: non-tender, soft Extremities: No swelling ICD10 Worksheet Patient Problems: Problems Problem Status Onset Carotid stenosis, bilateral Acute Fall from chair Acute Transient confusion Acute Concussion Acute Scalp laceration Acute
--- NOTE | 2017-12-28 17:20 | ASMTCMCOM ---
CM Note CM Note Notes: [employer] denied inpt rehab d/c. Pt's toured [facility] and pt has been accepted there. They will need to start insurance authorization Saturday. Date Signed: 12/28/2017 05:19 PM Electronically Signed By:WALDO Parkinson
[2017-12-28] MEDS: MONTELUKAST SODIUM 10 MG TAB PO SCH (17:36)
--- NOTE | 2017-12-29 08:53 | SOAPPROG ---
[facility] Progress Note Assessment/Plan: Assessment/Plan: 79-year-old male status post left carotid end arterectomy status post fall with head bleed and hyponatremia - AO, denies pain. ASA restarted yesterday, patient remains alert and neuro intact, neck is flat, steris peeling but c/d/i - No new recommendations 12/28/17 10:13 12/29/17 08:52 Subjective: doing well, alert and oriented Objective: Vital Signs Temp Pulse Resp BP Pulse Ox 36.8 C 76 20 149/83 H 98 12/29/17 07:54 12/29/17 07:54 12/29/17 07:54 12/29/17 07:54 12/29/17 07:54 Laboratory Results 12/27/17 06:00 12/29/17 04:55 12/28/17 12/29/17 12/30/17 05:59 05:59 05:59 Intake Total 740 500 Output Total 1175 550 Balance -435 -50 PT 13.4 SEC (12.0-15.0) 12/22/17 19:00 INR 1.00 (0.83-1.16) 12/22/17 19:00 ICD10 Worksheet Patient Problems: Problems Problem Status Onset Carotid stenosis, bilateral Acute Fall from chair Acute Transient confusion Acute Concussion Acute Scalp laceration Acute
[2017-12-29] MEDS: SENNOSIDES/DOCUSATE SODIUM TAB PO SCH ×2 (10:05→20:27)
[2017-12-29] MEDS: SODIUM CHLORIDE 1,000 MG TAB PO SCH ×3 (10:06→20:27)
[2017-12-29] MEDS: ATORVASTATIN CALCIUM 20 MG TAB PO SCH (10:06)
[2017-12-29] MEDS: ASPIRIN EC 81 MG TAB PO SCH (10:06)
[2017-12-29] MEDS: KETOROLAC 0.5% 5 ML OPHT.BTL LEFTEYE SCH ×2 (10:09→20:28)
--- NOTE | 2017-12-29 12:03 | HOSPPROG ---
Hospitalist Progress Note Assessment/Plan: 87 yo M w b/l carotid stenosis and hyponatremia Bilateral carotid stenosis s/p left endarterectomy -eventual right endarterectomy needed as well -check lipids - would benefit from statin -aspirin started Fall with traumatic SDH/SAH -neurosurgery consulted bleed stable Concussion s/p fall in [facility] -cognitive decline already before new bleed today Hyponatremia due to SIADH now 132 ellis: dc today proph: contraindication to LMWH dispo: inpt Subjective: case d/w dr caldwell. Na normalizing. no FRANKLIN. continues to become more alert Objective: Vital Signs Temp Pulse Resp BP Pulse Ox 37.0 C 78 18 104/63 96 12/29/17 11:58 12/29/17 11:58 12/29/17 11:58 12/29/17 11:58 12/29/17 11:58 Laboratory Results 12/27/17 06:00 12/29/17 04:55 12/28/17 12/29/17 12/30/17 05:59 05:59 05:59 Intake Total 740 500 Output Total 1175 550 Balance -435 -50 PT 13.4 SEC (12.0-15.0) 12/22/17 19:00 INR 1.00 (0.83-1.16) 12/22/17 19:00 ICD10 Worksheet Patient Problems: Problems Problem Status Onset Carotid stenosis, bilateral Acute Fall from chair Acute Transient confusion Acute Concussion Acute Scalp laceration Acute
--- NOTE | 2017-12-29 17:36 | SOAPPROG ---
GERDA Progress Note Assessment/Plan: Assessment: The patient is an 87 y/o M who presented with a fall and severe L carotid artery stenosis as well as hyponatremia consistent with SIADH now s/p endarterectomy complicated by a fall and given ddAVP with subsequent expected worsening of hyponatremia. 1. Hyponatremia -Unclear initial etiology and concern as he was having issues with gait on vacation -TSH WNL, cortisol AM>20 -Follow I/O -fluid restriction 1.2L -hold ddAVP unless bleeding -given one dose lasix 20mg IV -Now on salt tabs and improving appropriately, now nearly normal -OK to drop Na check to daily BMP -Cont same dose salt tabs, reduce to 1g BID when Na > 135; d/c if > 140 2. Fall with SDH/SAH -s/p aspirin -fall precautions -neurosurgery following 3. HTN -BP's now well-controlled on enalapril and hydralazine prn 4. S/p endarterectomy -CT surgery following -holding aspirin for now Will SIGN OFF at this time. Please contact with ?s. #[phone]. Plan: 12/29/17 17:37 12/29/17 17:38 Subjective: Napping now, but was up walking the halls earlier per nurse. Eating ok and taking meds. Letting him sleep. Objective: Vital Signs Temp Pulse Resp BP Pulse Ox 37.0 C 78 18 104/63 96 12/29/17 11:58 12/29/17 11:58 12/29/17 11:58 12/29/17 11:58 12/29/17 11:58 Laboratory Results 12/27/17 06:00 12/29/17 04:55 12/28/17 12/29/17 12/30/17 05:59 05:59 05:59 Intake Total 740 500 Output Total 1175 550 Balance -435 -50 PT 13.4 SEC (12.0-15.0) 12/22/17 19:00 INR 1.00 (0.83-1.16) 12/22/17 19:00 Physical Exam - Physical Exam General Appearance: other (asleep now but was awake/oriented earlier ) Extremities: No swelling ICD10 Worksheet Patient Problems: Problems Problem Status Onset Carotid stenosis, bilateral Acute Fall from chair Acute Transient confusion Acute Concussion Acute Scalp laceration Acute
[2017-12-29] MEDS: MONTELUKAST SODIUM 10 MG TAB PO SCH (17:58)
[2017-12-29 18:35] VITALS: RESP 16
--- NOTE | 2017-12-30 08:49 | SOAPPROG ---
SOAP Progress Note Assessment/Plan: Assessment/Plan: 79-year-old male status post left carotid end arterectomy status post fall with head bleed and hyponatremia Neuro exam unchanged. ASA restarted. Wounds c/d/i. Na improved. Seen and examined with Dr. Torres. No new recommendations. Will add info to d/c plan. 12/30/17 08:45 Objective: Vital Signs Temp Pulse Resp BP Pulse Ox 37.1 C 62 16 119/77 90 L 12/30/17 07:11 12/30/17 07:11 12/30/17 07:11 12/30/17 07:11 12/30/17 07:11 Laboratory Results 12/27/17 06:00 12/30/17 03:24 12/29/17 12/30/17 12/31/17 05:59 05:59 05:59 Intake Total 500 350 Output Total 550 350 80 Balance -50 0 -80 PT 13.4 SEC (12.0-15.0) 12/22/17 19:00 INR 1.00 (0.83-1.16) 12/22/17 19:00 ICD10 Worksheet Patient Problems: Problems Problem Status Onset Carotid stenosis, bilateral Acute Fall from chair Acute Transient confusion Acute Concussion Acute Scalp laceration Acute
[2017-12-30] MEDS: SENNOSIDES/DOCUSATE SODIUM TAB PO SCH (10:13)
[2017-12-30] MEDS: SODIUM CHLORIDE 1,000 MG TAB PO SCH (10:13)
[2017-12-30] MEDS: ATORVASTATIN CALCIUM 20 MG TAB PO SCH (10:13)
[2017-12-30] MEDS: ASPIRIN EC 81 MG TAB PO SCH (10:13)
[2017-12-30] MEDS: KETOROLAC 0.5% 5 ML OPHT.BTL LEFTEYE SCH (10:14)
--- NOTE | 2017-12-30 10:21 | GCON ---
[f rep st] CONSULTATION DATE OF CONSULTATION: 12/23/2017 HISTORY OF PRESENT ILLNESS: The patient is an 87-year-old male who was admitted as a stroke alert bu t not found to have an acute stroke. However, he has severe bilateral carotid disease with the left side being 95+ percent occluded, with poor left-sided hemispheric blood flow as well. On the right, he has an 80% internal carotid stenosis as well. The vertebral arteries are open. He presents somew hat stuporous with a flat affect and a poor responsiveness, although he is severely hard of hearing a s well. He falls frequently and has some ataxia in his gait. PAST MEDICAL HISTORY: Includes glaucoma, asthma. REVIEW OF SYSTEMS: Reveals no major findings on a 10-point review of systems other than related to t he HPI. He does not smoke. He denies any cardiopulmonary symptoms at this time. FAMILY HISTORY: Noncontributory. PHYSICAL EXAMINATION: GENERAL: An alert but sluggish 87-year-old male in no acute distress. VITAL SIGNS: He is afebrile. HEAD and NECK: Reveals no icterus. He is PERRLA. There are no oral lesion s. Neck is supple without thyromegaly. There are no carotid bruits. LUNGS: Symmetric and clear. CARDIAC: Regular rhythm with no murmurs. ABDOMEN: Soft and nontender without masses. EXTREMITIES: Reveal full range of motion, full pulses with no edema or clubbing. PSYCHIATRIC: Reveals him to h ave a somewhat blunted affect, but he is oriented and cooperative. NEUROLOGIC: Reveals him to have symmetrical motor and sensory function intact cranial nerves. He does appear to be oriented. IMPRESSION: A significant bilateral carotid disease, which is quite critical on the left. He appear s to have some ataxia and cerebral ischemia secondary to this low-flow state. This is complicated by the fact that he has hyponatremia and he has a history of a fall with a mild concussion approximatel y 10 days ago, however his head CTs have been negative. I think his primary problems this time is ce rebral ischemia from extra cranial carotid disease. I would recommend full heparinization and urgent carotid endarterectomy. The risks and options have been discussed with the patient and his family. /[id number]/MODL
[2017-12-30 11:17] VITALS: BP 151/79; PULSE 67; TEMP 98.6; O2SAT 93
--- NOTE | 2017-12-30 13:16 | HOSPPROG ---
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 ellis: dc today proph: contraindication to LMWH dispo: to SNF today > 30 minutes on dc Subjective: ready for dc Objective: Vital Signs Temp Pulse Resp BP Pulse Ox 37.0 C 67 16 151/79 H 93 12/30/17 11:16 12/30/17 11:16 12/30/17 11:16 12/30/17 11:16 12/30/17 11:16 Laboratory Results 12/27/17 06:00 12/30/17 03:24 12/29/17 12/30/17 12/31/17 05:59 05:59 05:59 Intake Total 500 350 200 Output Total 550 350 80 Balance -50 0 120 PT 13.4 SEC (12.0-15.0) 12/22/17 19:00 INR 1.00 (0.83-1.16) 12/22/17 19:00 - Physical Exam Constitutional: no apparent distress, appears nourished Eyes: PERRL, anicteric sclera Ears, Nose, Mouth, Throat: moist mucous membranes, hearing normal Cardiovascular: regular rate and rhythym, no murmur, rub, or gallop Respiratory: no respiratory distress, no rales or rhonchi Gastrointestinal: normoactive bowel sounds, soft, non-tender abdomen Genitourinary: No ellis in urethra Skin: warm, normal color Musculoskeletal: full muscle strength ICD10 Worksheet Patient Problems: Problems Problem Status Onset Carotid stenosis, bilateral Acute Fall from chair Acute Transient confusion Acute Concussion Acute Scalp laceration Acute
--- NOTE | 2017-12-30 13:17 | PDIAF ---
- Diagnosis Diagnosis: s/p carotid endarterectomy Code Status: Do Not Resuscitate - Medication Management Discharge Medications: Medications to Continue on Transfer Montelukast Sodium [Singulair 10 mg (*)] 10 mg PO DAILY@1800 12/21/17 [Last Taken 12/21/17] Ondansetron Odt [Zofran Odt 4 mg (*)] 4 mg PO Q4 PRN #10 tab 12/21/17 [Last Taken 12/22/17] Albuterol [Proventil Inhaler HFA (*)] 1 - 2 puffs IH Q4-6PRN PRN 12/22/17 [Last Taken Unknown] Ketorolac 0.5% [Acular 0.5% Opht Drops (*)] 1 drops LEFTEYE BID 12/22/17 [Last Taken 12/22/17] Propylene Glycol [Systane Balance] 1 drop EACHEYE PRN PRN 12/23/17 [Last Taken Unknown] Aspirin EC [Aspirin EC 81 mg (*)] 81 mg PO DAILY tab 12/30/17 [Last Taken Unknown] Atorvastatin Calcium [Lipitor 20 mg (*)] 20 mg PO DAILY tab 12/30/17 [Last Taken Unknown] Polyethylene Glycol 3350 [Miralax 17 gm (*)] 17 gm PO DAILY PRN pkt 12/30/17 [ Last Taken Unknown] Sodium Chloride [Salt Tablet] 1,000 mg PO BID tab 12/30/17 [Last Taken Unknown] Discharge Medications: Refer to the Discharge Home Medication list for PRN reason. - Orders Services needed: Registered Nurse, Certified Youth Services Specialist, Physical Therapy, Occupational Therapy, Speech Language Pathologist - Follow Up Care Current Providers and Referrals: Hubert Torres MD [Medical Doctor] - follow up in 1 week Patient,NotPresent [Unknown] - As per Instructions Monroe Taylor MD [Medical Doctor] - follow up in 2 weeks (Follow up in 2 weeks with new head CT)
[2017-12-30] MEDS ORDERED: PNEUMOC 13-VAL CONJ-DIP CRM/PF 0.5 ML SYR IM ONE (13:30)
--- NOTE | 2017-12-30 15:52 | ASDISCHSUM ---
Discharge Information Plan Status:SNF Medically Cleared to Leave: Discharge Date:12/30/2017 03:10 PM D/C Disposition:Snf Facility ADT D/C Disposition:Home, Routine, Self-Care Projected Discharge Date:12/25/2017 11:00 AM Transportation at D/C:Wheelchair Van Discharge Delay Reason: Follow-Up Date:12/25/2017 11:00 AM Discharge Slot: Final Diagnosis:Fall-head injury, Carotid stenosis Placement Information Referral Type:Rehabilitation Hospital Referral ID:[id number] Provider Name: Address 1: Phone Number: Address 2: Fax Number: City: Selection Factors: State: Referral Type:*Fci/SNF Referral ID:[id number] Provider Name:[facility] Address 1:[address] Address 2: City:[place] Selection Factors: State:[place] Patient Contact Information Contact Name:DUYEN Relationship: Address:[address] Work Phone: City:[facility] Alternate Phone: State/Zip Code:[place] [address] Email: Financial Information Financial Class:Medicare Advantage Plans Primary Plan Desc:[employer] G[employer]ICARE Primary Plan Number:[id number] Secondary Plan Desc: Secondary Plan Number: Assessment Information [facility] CM Progress Note CM Note CM Note Notes: 87 year old male admitted for severe carotid stenosis and recent fall with head injury. Has a limited hx of asthma and glaucoma. Had a L iTwinarerectomy. Lives with his who would like him to be able to get some rehab before returning home. Therapies are recommending In-pt Rehab. Patient has [employer] Medicare Ins If patient not authorized for In-pt to check out SNF's: [facility], [facility] and [facility]. Referrals made. Date Signed: 12/24/2017 03:04 PM Electronically Signed By:Renay Bae LCSW [facility] CM Progress Note CM Note CM Note Notes: 12/25/2017 Case Management Note Reviewed case in rounds with and pt present. CT scan showed bleeding on the brain. All therapies recommending Inpatient Rehab. Notified Inpatient rehab of recommendations. Frannie at Inpatient rehab can be reached at [phone]. She is sending for authorization with [employer] today. Anticipating it will take 3 days for authorization. Case Management d/c poc: pending auth Inpatient Rehab. Case Management to follow. Date Signed: 12/25/2017 12:58 PM Electronically Signed By:Saida Castrejon RN [facility] CM Progress Note CM Note CM Note Notes: Spoke with Frannie Chaparro from inpatient rehab who has started auth for patient through [employer] It is unclear at this time when patient will be ready for d/c. Frannie will check back over the next 2 days to monitor patient's progress. CM will follow. Date Signed: 12/25/2017 02:54 PM Electronically Signed By:Jessica Morrell LCSW [facility] CM Progress Note CM Note CM Note Notes: Met with patient's Dea to answer questions about the d/c plan. It is not clear yet if patient will be able to do inpatient rehab or will need SNF rehab. Patient continues to have issues with falling and his sodium levels are on the rise today. Dea, patient's states [facility] is their choice if patient cannot do inpatient rehab with [facility]. Frannie from [facility] met with the family today and explained their services. Explained to Dea, as soon as the decision was made around level of care, we would make arrangements for admit and transfer there. CM will follow. Date Signed: 12/26/2017 02:35 PM Electronically Signed By:Jessica Morrell LCSW [facility] CM Progress Note CM Note CM Note Notes: Met with patient's Dea who was upset about a 5th CT scan that has been ordered as a 2 week followup after her 's discharge. Contacted the [facility] to let them know this CT scan needs pre approval through patient's insurance, [employer]. Dr. Vizcarra addressed Dea's questions in rounds regarding why the CT scan is important and then let her know she can choose but it could be a life and situation. CM will follow. Date Signed: 12/27/2017 02:49 PM Electronically Signed By:Jessica Morrell LCSW [facility] CM Progress Note CM Note CM Note Notes: [employer] denied inpt rehab d/c. Pt's toured [facility] and pt has been accepted there. They will need to start insurance authorization Saturday. Date Signed: 12/28/2017 05:19 PM Electronically Signed By:WALDO Parkinson Case Management Discharge Plan Note Case Management Discharge Discharge Order Complete? Answers: Yes Patient to Obtain Answers: Independently Medications Transportation Arranged Answers: Other Notes: [facility] Transport will Pick (Date 12/30/2017 03:00 PM & Time) Faxed Final Orders Answers: Yes Family Notified Answers: Yes Discharge Comments Notes: Patient discharged to [facility]. Transport per facility. Son notified. VANDANA Vences to call report. Date Signed: 12/30/2017 01:31 PM Electronically Signed By:Kiera Pink RN Intervention Information Intervention Type:*IM-Signed Date of Service:12/30/2017 02:10 PM Patient Type:Inpatient Staff Member:Aria Silverman Hours: Discipline: Severity: Comment:
--- NOTE | 2017-12-30 16:53 | GDS ---
[f rep st] DISCHARGE SUMMARY DISCHARGE DIAGNOSES: 1. Bilateral carotid stenosis, status post left carotid endarterectomy. 2. Encephalopathy. 3. Hyponatremia. 4. Fall with traumatic subarachnoid hemorrhage. 5. History of asthma. 6. History of glaucoma. 7. Traumatic subdural. Please see admission history and physical by Dr. Tomer Graf. The patient presented on the evening of the with a fall a couple weeks prior to presentation, headaches and confusion. He had been in [facility], he came back and they brought him in here. Imaging showed bilateral carotid stenosis, left w orse than right. He was seen by Neurology. Seen by Dr. Torres. He underwent carotid endarterectomy the day following admission, he was actually doing pretty well, but then the patient had a fall on . He had development of subdural as well as subarachnoid. This was managed conservatively wit h serial CAT scans and Neurosurgery followup. Aspirin was held for a number of days and restart on . The patient was healing well from a Vascular surgery standpoint. The patient had hyponatre joanie on presentation at 122 and it slowly improved throughout his hospital. He received DDAVP followi ng his fall and subsequent intracranial hemorrhage, which resulted in transient worsening, but ultima tely his sodium was 133, on discharge, and the patient, from an encephalopathy standpoint, which got progressively better during the hospital stay. He is discharged to [facility]. /[id number]/MODL
[2017-12-30] MEDS ORDERED: SODIUM CHLORIDE 1,000 MG TAB PO SCH (21:00)
== END 2017-12-30 15:10 | DRG 37 ==
LOC: EDUNIT# → F3N 21:22 → F2N 12-23 16:33 → F2W 12-24 17:33 → F2N 12-25 13:28 → F2W 12-28 19:52
PROVIDERS: ADMIT Internal Medicine; ATTEND Internal Medicine
PROC: 03CL0ZZ Extirpation of Matter from Left Internal Carotid Artery, Open Approach (ICD-10-PCS; principal; 2017-12-22)
DX: I65.23 Occlusion and stenosis of bilateral carotid arteries (principal); E22.2 Syndrome of inappropriate secretion of antidiuretic hormone; E87.1 Hypo-osmolality and hyponatremia; G93.41 Metabolic encephalopathy; S06.0X0D Concussion without loss of consciousness, subsequent encounter; R27.0 Ataxia, unspecified; R29.6 Repeated falls; S06.5X0A Traumatic subdural hemorrhage without loss of consciousness, initial encounter; S06.6X0A Traumatic subarachnoid hemorrhage without loss of consciousness, initial encounter; W18.09XA Striking against other object with subsequent fall, initial encounter; Y92.230 Patient room in hospital as the place of occurrence of the external cause; Y99.8 Other external cause status; H91.93 Unspecified hearing loss, bilateral; H40.9 Unspecified glaucoma; J45.909 Unspecified asthma, uncomplicated; Z79.82 Long term (current) use of aspirin; Z23 Encounter for immunization
CPT/HCPCS: 82947-QW; 85520-90; 92507-GN; 92523-GN; 96365; 97116-GP; 97161-GP; 97164-GP; 97166-GO; 97168-GO; 97530-GP; 97535-GO; C1768; G0009; G0480; G8978-GP-CK; G8979-GP-CI; G8987-GO-CK; G8988-GO-CI; G8989-GO-CJ; J0360; J0690; J1100; J1170; J1644; J1940; J2405; J2440; J2597; J2704; J2720; J3010; Q9967

== ENCOUNTER 2018-01-21 10:24 | Inpatient (IN) | payer OTHER ==
[2018-01-21] MEDS ORDERED: ceFAZolin 2 GM/SWFI 2 GM/20 ML SYR IVP ONE (11:35)
[2018-01-21] MEDS ORDERED: LR 1,000 ML IV ONE (11:36)
--- NOTE | 2018-01-21 11:52 | PDHPUP ---
History & Physical Update H&P update statement: This history and physical update is based on an assessment of the patient which was completed after admission or registration (within 24 hours), but prior to the surgery/procedure. H&P update: H&P reviewed & patient examined, no change in patient's condition since H&P completed
[2018-01-21] MEDS ORDERED: BUPIVACAINE 0.5% 10 ML SDV ONE (12:38)
[2018-01-21] MEDS ORDERED: BACITRACIN ZINC 14.2 GM OINTTUBE TP ONE (12:39)
[2018-01-21] MEDS ORDERED: PROTAMINE SULFATE 50 MG/5 ML VIAL IVP ONE (12:39)
[2018-01-21] MEDS ORDERED: THROMBIN (BOVINE) 20,000 UNIT SPRAY TP ONE (12:39)
--- NOTE | 2018-01-21 13:31 | PDANEPAE ---
ANE Past Medical History - Cardiovascular History Hx Hypertension: No Hx Arrhythmias: No Hx Chest Pain: No Hx Coronary Artery / Peripheral Vascular Disease: Yes Hx CHF / Valvular Disease: No Hx Palpitations: No - Pulmonary History Hx COPD: No Hx Asthma/Reactive Airway Disease: Yes Hx Recent Upper Respiratory Infection: No Hx Oxygen in Use at Home: No Hx Sleep Apnea: No Sleep Apnea Screening Result - Last Documented: Negative Pulmonary History Comment: EXERSIONAL ASTHMA USES INHALER - Neurologic History Hx Cerebrovascular Accident: No Hx Seizures: No Hx Dementia: No Neurologic History Comment: TIA no deficits - Endocrine History Hx Diabetes: No - Renal History Hx Renal Disorders: No - Liver History Hx Hepatic Disorders: No - Neurological & Psychiatric Hx Hx Neurological and Psychiatric Disorders: No - Cancer History Hx Cancer: No - Congenital Disorder History Hx Congenital Disorders: No - GI History Hx Gastrointestinal Disorders: No - Other Health History Other Health History: none - Chronic Pain History Chronic Pain: No - Surgical History Prior Surgeries: L CEA,CATARACT SX ANE Review of Systems Review of Systems: - Exercise capacity METS (RN): 4 METS ANE Patient History - Allergies Allergies/Adverse Reactions: novacaine Allergy (Uncoded 12/22/17 20:37) Other-Enter Comments - Home Medications Home Medications: Montelukast Sodium [Singulair 10 mg (*)] 10 mg PO DAILY@1800 12/21/17 [Last Taken 01/20/18] Albuterol [Proventil Inhaler HFA (*)] 1 - 2 puffs IH Q4-6PRN PRN 12/22/17 [Last Taken 01/21/18] Ketorolac 0.5% [Acular 0.5% Opht Drops (*)] 1 drops LEFTEYE BID 12/22/17 [Last Taken 01/21/18] Propylene Glycol [Systane Balance] 1 drop EACHEYE PRN PRN 12/23/17 [Last Taken 01/20/18] - NPO status NPO Since - Liquids (Date): 01/21/18 NPO Since - Liquids (Time): 09:30 NPO Since - Solids (Date): 01/20/18 NPO Since - Solids (Time): 16:30 - Smoking Hx Smoking Status: Never smoked - Family Anes Hx Family Hx Anesthesia Complications: NONE ANE Labs/Vital Signs - Vital Signs Blood Pressure: 123/78 Heart Rate: 74 Respiratory Rate: 14 O2 Sat (%): 94 Height: 182.88 cm Weight: 70.307 kg ANE Physical Exam - Airway Neck exam: FROM Mallampati Score: Class 3 Mouth exam: normal dental/mouth exam - Pulmonary Pulmonary: no respiratory distress - Cardiovascular Cardiovascular: regular rate and rhythym - ASA Status ASA Status: III ANE Anesthesia Plan Anesthesia Plan: general endotracheal anesthesia Lines/Monitors: arterial line
[2018-01-21] MEDS ORDERED: fentaNYL 100 MCG/2 ML INJ ONE ×2 (13:36→15:04)
[2018-01-21] MEDS ORDERED: REMIFENTANIL HCL 1 MG VIAL ONE (13:36)
[2018-01-21] MEDS ORDERED: ROCURONIUM 100 MG/10 ML VIAL ONE (13:36)
[2018-01-21] MEDS ORDERED: PROPOFOL/EMULSION 500 MG/50 ML BOTTLE IV ONE (13:36)
[2018-01-21] MEDS ORDERED: DEXAMETHASONE 4 MG/ML VIAL ONE (13:37)
[2018-01-21] MEDS ORDERED: LIDOCAINE 2% 100 MG/5 ML SYR ONE (13:37)
[2018-01-21] MEDS ORDERED: HEPARIN 10,000 UNIT/10 ML MDV (1,000 UNIT/ML) ONE (13:37)
[2018-01-21] MEDS ORDERED: HYDROmorphONE/DILAUDID 2 MG/ML INJ IVP PRN (16:14)
[2018-01-21] MEDS ORDERED: ONDANSETRON 4 MG/2 ML VIAL IVP PRN ×2 (16:14→16:25)
[2018-01-21] MEDS ORDERED: OXYCODONE/APAP 5/325 TAB PO PRN (16:14)
[2018-01-21] MEDS ORDERED: ACETAMINOPHEN 325 MG TAB PO PRN (16:14)
[2018-01-21] MEDS ORDERED: ENALAPRILAT DIHYDRATE 1.25 MG/ML VIAL IVP PRN (16:16)
--- NOTE | 2018-01-21 16:18 | POSTOPPROG ---
Post Op Note Date of Operation: 01/21/18 Surgeon: Hubert Torres Residential Support Specialist: Debora Wallace Anesthesiologist: Donn Salazar Anesthesia: GET(General Endotracheal) Pre-op Diagnosis: R critical carotid stenosis Post-op Diagnosis: same Procedure: R CEA c EEG monitoring and patch closure Findings: ulcerated plaque with extremely high bifurcation Inf/Abcess present in the surg proc area at time of surgery?: No EBL: 50-100 Complications: none Specimen(s): plaque to pathology
[2018-01-21] MEDS ORDERED: LABETALOL HCL 5 MG/ML 20 ML MDV IVP PRN (16:25)
[2018-01-21] MEDS ORDERED: ALBUTEROL 3 ML DEYVIAL IH PRN (16:25)
[2018-01-21] MEDS ORDERED: NALOXONE HCL 0.4 MG/ML INJ IVP PRN (16:25)
[2018-01-21] MEDS ORDERED: fentaNYL 100 MCG/2 ML INJ IVP PRN (16:25)
[2018-01-21] MEDS ORDERED: LABETALOL HCL 5 MG/ML 20 ML MDV ONE (16:26)
--- NOTE | 2018-01-21 16:27 | POSTANESTH ---
Post Anesthetic Evaluation Cardiovascular Status: Similar to Pre-Op Cond Respiratory Status: Similar to Pre-op Cond. Level of Consciousness/Mental Status: Mildly Sleepy, Arousable Pain Control: Adequate, Prn Tx Ordered Nausea/Vomiting Control: Adequate, Prn Tx Ordered Complications Possibly Related to Anesthesia: None Noted
[2018-01-21] MEDS ORDERED: hydrALAZINE 20 MG/ML VIAL IVP ONE (17:00)
[2018-01-21] MEDS ORDERED: hydrALAZINE 20 MG/ML VIAL ONE (17:00)
--- NOTE | 2018-01-21 17:02 | PDMN ---
Medical Necessity Medical necessity: Pt meets INPT criteria per and [facility] S-300 Carotid Endarterectomy ( INPT Only surgery).
[2018-01-21] MEDS ORDERED: niCARdipine/NACL/200 ML BAG IV ONE (17:17)
[2018-01-21] MEDS: NS W/ 20 KCl/L 1,000 ML IV SCH (19:00)
[2018-01-21] MEDS ORDERED: niCARdipine/NACL 200 ML IV SCH (19:30)
[2018-01-21] MEDS: DOCUSATE SODIUM 100 MG CAP PO SCH (20:47)
[2018-01-22] MEDS: NS W/ 20 KCl/L 1,000 ML IV SCH (01:25)
[2018-01-22] MEDS ORDERED: ONDANSETRON DISINTEGRATING 4 MG TAB PO PRN (07:47)
[2018-01-22] MEDS ORDERED: Propylene Glycol [Systane Balance] 1 DROP EACHEYE PRN (07:47)
[2018-01-22] MEDS ORDERED: ALBUTEROL 60 PUFFS/8 GM MDI IH PRN (07:47)
[2018-01-22] MEDS: KETOROLAC 0.5% 5 ML OPHT.BTL LEFTEYE SCH ×2 (08:59→20:10)
[2018-01-22] MEDS: ASPIRIN EC 81 MG TAB PO SCH (09:04)
[2018-01-22] MEDS: SODIUM CHLORIDE 1,000 MG TAB PO SCH ×2 (09:04→20:10)
[2018-01-22] MEDS: DOCUSATE SODIUM 100 MG CAP PO SCH ×2 (09:04→20:09)
[2018-01-22] MEDS: POLYETHYLENE GLYCOL 3350 17 GM PKT PO SCH (09:05)
--- NOTE | 2018-01-22 09:49 | SOAPPROG ---
SOAP Progress Note Assessment/Plan: Assessment/Plan: 87 Y M s/p R CEA, POD#1. Doing well. Hypertension. Off cardene gtt. Norvasc added. Wounds intact. Neuro exam stable. Dispo: med surg. Case management consult requested--pt d/c'ed to SNF last hospital stay for opposite side CEA. S: no complaints. O: alert, nad inc cdi ctab anteriorly rrr neuro exam intact--tongue midline, pupils equal, round. 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 5/5 dorsi and plantar flexion. 01/22/18 09:45 Objective: Vital Signs Temp Pulse Resp BP Pulse Ox 36.4 C 64 17 111/53 L 95 01/22/18 08:00 01/22/18 08:00 01/22/18 08:00 01/22/18 08:00 01/22/18 08:00 Laboratory Results 01/22/18 05:35 01/22/18 05:35 01/21/18 01/22/18 01/23/18 05:59 05:59 05:59 Intake Total 3051 Output Total 1134 Balance 1917 ICD10 Worksheet Patient Problems: Problems Problem Status Onset Carotid stenosis, bilateral Acute Concussion Acute Fall from chair Acute Scalp laceration Acute Transient confusion Acute
--- NOTE | 2018-01-22 10:00 | ASMTCMCOM ---
CM Note CM Note Notes: Patient admitted for planned R CEA with Dr Torres. He had EEG monitoring and patch closure during the procedure. Patient was recently admitted to [facility] 12/22 - 12/30 for a fall/ataxia complicated by hyponatremia and the critical carotid stenosis. He discharged to [facility] with plans to return to [facility] for the CEA. Per patient, he was discharged from [facility] yesterday 12/24, the day of his procedure. He hopes not to go back to the SNF but understands that this will depend on his progress and abilities to be safe at home. He lives with his Dea. Date Signed: 01/22/2018 10:00 AM Electronically Signed By:Kiera Pink RN
[2018-01-22] MEDS ORDERED: IOPAMIDOL (ISOVUE 370) 100 ML BTL IV ONE (10:44)
[2018-01-22] MEDS: HYDROCORTISONE 2.5% 30 GM CRTUBE TP SCH ×2 (11:47→20:11)
--- NOTE | 2018-01-22 13:53 | HOSPPROG ---
Hospitalist Progress Note Assessment/Plan: Stroke alert called overhead and asked to see patient urgently He is a 87 yo male with a hx of bilateral carotid calcification who had Right sided CEA yesterday. About a month ago he had left sided CEA. This morning he was working with PT and was found to have RLE, RUE weakness as well as left facial droop. He was taken urgently to imaging. Head CT and Head and Neck CTA do not show acute pathology. His clinical findings were transient as they are not present during my exam #Transient RLE and RUE weakness with complete resolution #Transient Left facial droop, with complete resolution #POD #1 Right sided CEA #Recent Left sided CEA Plan: -discussed case with surgical team. Given full resolution, normal neuro exam, and negative imaging, no additional interventions or consults are needed -cont with Aspirin 81 mg daily which was restarted this morning -cont post op care. please call if questions, will not follow. total critical care time is 35 minutes Subjective: stroke alert called overhead. Objective: Vital Signs Temp Pulse Resp BP Pulse Ox 36.6 C 63 20 146/63 H 95 01/22/18 11:51 01/22/18 11:51 01/22/18 11:51 01/22/18 11:51 01/22/18 11:51 Laboratory Results 01/22/18 05:35 01/22/18 05:35 01/21/18 01/22/18 01/23/18 05:59 05:59 05:59 Intake Total 3051 Output Total 1134 Balance 1917 - Physical Exam Constitutional: no apparent distress Eyes: PERRL, EOMI Ears, Nose, Mouth, Throat: moist mucous membranes, hearing normal, ears appear normal Cardiovascular: regular rate and rhythym, No edema Respiratory: no respiratory distress, no rales or rhonchi Gastrointestinal: normoactive bowel sounds, soft, non-tender abdomen Skin: warm Neurologic: AAOx3, CN II-XII Intact, No weakness, No facial droop Psychiatric: interacting appropriately, not anxious Lymph, Heme, Immunologic: No petechiae ICD10 Worksheet Patient Problems: Problems Problem Status Onset Carotid stenosis, bilateral Acute Concussion Acute Fall from chair Acute Scalp laceration Acute Transient confusion Acute
[2018-01-22] MEDS ORDERED: MONTELUKAST SODIUM 10 MG TAB PO SCH (18:00)
[2018-01-22] MEDS ORDERED: ATORVASTATIN CALCIUM 20 MG TAB PO SCH (21:00)
[2018-01-23 07:42] VITALS: O2SAT 93
[2018-01-23] MEDS: ASPIRIN EC 81 MG TAB PO SCH (08:01)
[2018-01-23] MEDS: DOCUSATE SODIUM 100 MG CAP PO SCH (08:01)
[2018-01-23] MEDS: POLYETHYLENE GLYCOL 3350 17 GM PKT PO SCH (08:01)
[2018-01-23] MEDS: SODIUM CHLORIDE 1,000 MG TAB PO SCH (08:01)
[2018-01-23] MEDS: HYDROCORTISONE 2.5% 30 GM CRTUBE TP SCH (08:02)
[2018-01-23] MEDS: KETOROLAC 0.5% 5 ML OPHT.BTL LEFTEYE SCH (08:11)
[2018-01-23] MEDS ORDERED: ENOXAPARIN 40 MG/0.4 ML SYR SC SCH (09:00)
[2018-01-23 12:21] VITALS: RESP 16; TEMP 98.4
--- NOTE | 2018-01-23 13:02 | ASMTCMCOM ---
CM Note CM Note Notes: Chart reviewed for discharge planning purposes. Patient is making progress and wishes to home home upon discharge. Per OT may go home with [facility], awaiting PT recommendations from today's therapy session. Plan likely home with [facility]. CM to follow. Patient admitted for planned R CEA with Dr Torres. He had EEG monitoring and patch closure during the procedure. Patient was recently admitted to [facility] 12/22 - 12/30 for a fall/ataxia complicated by hyponatremia and the critical carotid stenosis. He discharged to [facility] with plans to return to [facility] for the CEA. Per patient, he was discharged from [facility] yesterday 12/24, the day of his procedure. He hopes not to go back to the SNF but understands that this will depend on his progress and abilities to be safe at home. He lives with his Dea. Date Signed: 01/23/2018 01:01 PM Electronically Signed By:Abby Solomon RN
--- NOTE | 2018-01-23 14:55 | PDIAF ---
- Medication Management Discharge Medications: Medications to Continue on Transfer Montelukast Sodium [Singulair 10 mg (*)] 10 mg PO DAILY@1800 12/21/17 [Last Taken 01/20/18] Ondansetron Odt [Zofran Odt 4 mg (*)] 4 mg PO Q4 PRN #10 tab 12/21/17 [Last Taken 01/20/18] Albuterol [Proventil Inhaler HFA (*)] 1 - 2 puffs IH Q4-6PRN PRN 12/22/17 [Last Taken 01/21/18] Ketorolac 0.5% [Acular 0.5% Opht Drops (*)] 1 drops LEFTEYE BID 12/22/17 [Last Taken 01/21/18] Propylene Glycol [Systane Balance] 1 drop EACHEYE Q6 PRN 12/23/17 [Last Taken ] Aspirin EC [Aspirin EC 81 mg (*)] 81 mg PO DAILY tab 12/30/17 [Last Taken 01/20] Sodium Chloride [Salt Tablet] 1,000 mg PO BID tab 12/30/17 [Last Taken 01/20/18 ] Atorvastatin Calcium [Lipitor 20 mg (*)] 20 mg PO HS 01/21/18 [Last Taken ] Polyethylene Glycol 3350 [Miralax 17 gm (*)] 17 gm PO DAILY 01/21/18 [Last Taken 01/20/18] oxyCODONE/APAP 5/325 [Percocet 5/325 (*)] 1 - 2 tab PO Q4 PRN #20 tab 01/23/18 [ Last Taken Unknown] Additional Medication Instructions: Continue daily aspirin 325mg. Discharge Medications: Refer to the Discharge Home Medication list for PRN reason. PICC Care - Routine: N/A - Orders Services needed: Registered Nurse, Physical Therapy, Occupational Therapy Isolation Type: None Diet Recommendation: no restrictions on diet Diet Texture: Regular Texture Diet Weigh Patient: weekly Patel: No Wound Care Instructions: May shower, but do not take steri strips off. They will fall off on their own in 1-2 weeks. Sutures/Forest Site: Leave steri strips in place until they fall off on their own Activity/Weight Bearing Restrictions: Advance activity as tolerated - Follow Up Care Current Providers and Referrals: Marcio Wesley MD [Primary Care Provider] - Hubert Torres MD [Medical Doctor] - follow up in 1 week
--- NOTE | 2018-01-23 15:28 | ASMTCMCOM ---
CM Note CM Note Notes: Spoke w/pt and family re; dc poc. Pt wishes to return home instead of rehab, was evaluated by PT/OT who are in agreement that pt can go home. They would like a referral sent to [facility], referral sent and [facility] notified that pt would not be returning. DC Plan: Homecare/[facility] (RN/PT) Date Signed: 01/23/2018 03:24 PM Electronically Signed By:Misti Pardo RN
--- NOTE | 2018-01-23 15:32 | ASMTLACE ---
LACE Length of stay for Answers: 2 days current admission Acuity / Level of Answers: Yes Care: Did the patient have an inpatient admission? Comorbidities - select Answers: Cerebrovascular disease all that apply (CVA, TIA, aneurysms, vasc ular dementia) Peripheral vascular disease # of Emergency department Answers: 1-2 visits in the last 6 months Score: 8 Date Signed: 01/23/2018 03:31 PM Electronically Signed By:Misti Pardo RN
[2018-01-23 15:42] VITALS: BP 164/74; PULSE 82
--- NOTE | 2018-01-23 15:49 | SOAPPROG ---
SOAP Progress Note Assessment/Plan: Assessment: 87 Y M s/p R CEA s/p stroke alert 01/22. Symptoms have since resolved. S: Doing well. Up in chair during visit. Eager to be discharged. O: alert, nad inc cdi ctab anteriorly rrr neuro exam intact--tongue midline, pupils equal, round. 5/5 flight nurse strength. 5/5 dorsi and plantar flexion. Plan: Discharge to SNF for RN, OT, and PT care. Continue asa and Lipitor. Follow up in our office in one week. 01/23/18 15:45 Objective: Vital Signs Temp Pulse Resp BP Pulse Ox 36.9 C 82 16 164/74 H 93 01/23/18 15:39 01/23/18 15:39 01/23/18 15:39 01/23/18 15:39 01/23/18 15:39 Laboratory Results 01/22/18 05:35 01/22/18 05:35 01/22/18 01/23/18 01/24/18 05:59 05:59 05:59 Intake Total 3051 450 Output Total 1134 Balance 1917 450 ICD10 Worksheet Patient Problems: Problems Problem Status Onset Carotid stenosis, bilateral Acute Concussion Acute Fall from chair Acute Scalp laceration Acute Transient confusion Acute
--- NOTE | 2018-01-23 17:36 | ASDISCHSUM ---
Discharge Information Plan Status:Home with Home Health Medically Cleared to Leave: Discharge Date:01/23/2018 04:27 PM CM D/C Disposition:Home Health Service ADT D/C Disposition:[id number] Projected Discharge Date:01/23/2018 11:00 AM Transportation at D/C:Family Discharge Delay Reason: Follow-Up Date:01/23/2018 11:00 AM Discharge Slot: Final Diagnosis: Placement Information Referral Type:*Home Health Care Services Referral ID:[id number] Provider Name:[facility] Address 1:[address] Address 2: City:[place] Selection Factors: State:[place] Patient Contact Information Contact Name:DUYEN Relationship: Address:[address] City:[place] Alternate Phone: State/Zip Code:[place] [address] Email: Financial Information Financial Class:Medicare Advantage Plans Primary Plan Desc:[employer] GOLD MEDICARE Primary Plan Number:[id number] Secondary Plan Desc: Secondary Plan Number: Assessment Information LACE LACE Length of stay for Answers: 2 days current admission Acuity / Level of Answers: Yes Care: Did the patient have an inpatient admission? Comorbidities - select Answers: Cerebrovascular disease all that apply (CVA, TIA, aneurysms, vasc ular dementia) Peripheral vascular disease # of Emergency department Answers: 1-2 visits in the last 6 months Score: 8 Date Signed: 01/23/2018 03:31 PM Electronically Signed By:Misti Pardo RN [facility] Progress Note CM Note CM Note Notes: Patient admitted for planned R CEA with Dr Torres. He had EEG monitoring and patch closure during the procedure. Patient was recently admitted to [facility] 12/22 - 12/30 for a fall/ataxia complicated by hyponatremia and the critical carotid stenosis. He discharged to [facility] with plans to return to [facility] for the CEA. Per patient, he was discharged from [facility] yesterday 12/24, the day of his procedure. He hopes not to go back to the SNF but understands that this will depend on his progress and abilities to be safe at home. He lives with his Dea. Date Signed: 01/22/2018 10:00 AM Electronically Signed By:Kiera Pink RN [facility] CM Progress Note CM Note CM Note Notes: Chart reviewed for discharge planning purposes. Patient is making progress and wishes to home home upon discharge. Per OT may go home with [facility], awaiting PT recommendations from today's therapy session. Plan likely home with [facility]. CM to follow. Patient admitted for planned R CEA with Dr Torres. He had EEG monitoring and patch closure during the procedure. Patient was recently admitted to [facility] 12/22 - 12/30 for a fall/ataxia complicated by hyponatremia and the critical carotid stenosis. He discharged to [facility] with plans to return to [facility] for the CEA. Per patient, he was discharged from [facility] yesterday 12/24, the day of his procedure. He hopes not to go back to the SNF but understands that this will depend on his progress and abilities to be safe at home. He lives with his Dea. Date Signed: 01/23/2018 01:01 PM Electronically Signed By:Abby Solomon RN [facility] CM Progress Note CM Note CM Note Notes: Spoke w/pt and family re; dc poc. Pt wishes to return home instead of rehab, was evaluated by PT/OT who are in agreement that pt can go home. They would like a referral sent to [facility], referral sent and [facility] notified that pt would not be returning. DC Plan: Homecare/[facility] (RN/PT) Date Signed: 01/23/2018 03:24 PM Electronically Signed By:Misti Pardo RN Case Management Discharge Plan Note Case Management Discharge Discharge Order Complete? Answers: Yes Patient to Obtain Answers: via Family Medications Transportation Arranged Answers: Family/Friends Faxed Final Orders Answers: Yes Agency/Facility Transfer Answers: Yes Report Printed & Faxed to Receiving Agency Family Notified Answers: Yes Discharge Comments Notes: D/w RN, final orders faxed. Homecare set up with [facility]. Date Signed: 01/23/2018 03:49 PM Electronically Signed By:Misti Pardo RN Intervention Information
--- NOTE | 2018-02-02 04:22 | GOP ---
[f rep st] OPERATIVE REPORT DATE OF OPERATION: 01/21/2018 SURGEON: Hubert Torres MD CSW: Debora Wallace, PAC. ANESTHESIOLOGIST: Curry Salazar MD. PREOPERATIVE DIAGNOSIS: Critical right carotid stenosis. POSTOPERATIVE DIAGNOSIS: Critical right carotid stenosis. PROCEDURE PERFORMED: Right carotid endarterectomy. FINDINGS: The patient was found to have a 75% stenosis of the right internal carotid artery extendin g well up the internal carotid. He had no EEG changes or neurologic changes after surgery or during surgery. DESCRIPTION OF PROCEDURE: The patient was taken to the operating room where he received satisfactory general endotracheal anesthesia by Dr. Salazar. He had continuous EEG monitoring and art line maria d toring, and he had been systemically heparinized prior to induction of general anesthesia. He was pr epped and draped in the usual sterile fashion. Incision was made along the anterior border of the st ernocleidomastoid muscle, and dissection was carried down through the platysma and subcutaneous tissu e and then through the cervical fascia, exposing the carotid arterial tree. Common facial vein branc hes were multiply ligated and divided. Exposed the carotid arterial tree. Dissection extended signi ficantly up along the internal carotid artery to get above the palpable plaque. This required divisi on of the digastric tendon and freeing up of the hypoglossal nerve. Eventually, adequate distal cont rol was obtained and the common carotid, internal carotid, and external carotid arteries were encircl ed with vessel loops for control as was the inferior thyroid artery. The patient was given additiona l heparin at this point, and after adequate circulation time, the vessels were occluded. Arteriotomy was made in the common carotid artery and extended up through the plaque and up to the internal brown tid artery above the plaque. Adequate backflow was present in the internal carotid artery. Expediti ous endarterectomy was then done cleaning out the artery. All vessels were then flushed. A Dacron p atch was placed over the arteriotomy and closed and sutured in place with a running Hemashield 7 sutu re. All vessels were again flushed prior to completion of the suture line. Flow was then establishe d 1st through the external carotid and then through the internal carotid. Suture line appeared to be hemostatic. Wounds were irrigated. Heparin was reversed with protamine. The wound was sprayed wit h some topical thrombin and closed in layers using 3-0 Vicryl for the cervical fascia, 3-0 Vicryl for the platysma and subcutaneous tissue, 4-0 Monocryl subcuticular stitch for the skin. All layers wer e infiltrated with 0.5% Marcaine. Blood loss was negligible. There were no complications. He was t aken to the recovery room in good condition. /[id number]/MODL
== END 2018-01-23 16:27 | disposition home health service (06) | DRG 39 ==
LOC: F2W 10:24 → F2N 17:31 → F3E 01-22 14:26
PROVIDERS: ADMIT Surgery; ATTEND Surgery
PROC: 03CK0ZZ Extirpation of Matter from Right Internal Carotid Artery, Open Approach (ICD-10-PCS; principal; 2018-01-21 12:45)
DX: I65.21 Occlusion and stenosis of right carotid artery (principal); J45.909 Unspecified asthma, uncomplicated
CPT/HCPCS: 92507-GN; 92523-GN; 97116-GP; 97162-GP; 97166-GO; 97535-GO; C1768; G8987-GO-CK; G8988-GO-CI; G8989-GO-CI; J0360; J0690; J1100; J1644; J1650; J2001; J2704; J2720; J3010; Q9967

== ENCOUNTER 2018-01-26 09:40 | Observation (INO) | payer OTHER ==
--- NOTE | 2018-01-26 09:42 | EDPHY ---
H & P Time Seen by Provider: 01/26/18 09:41 Constitutional: Initial Vital Signs Temperature (C) 37.2 C 01/26/18 09:40 Heart Rate 78 01/26/18 09:40 Respiratory Rate 20 01/26/18 09:40 Blood Pressure 169/93 H 01/26/18 09:40 O2 Sat (%) 93 01/26/18 09:40 O2 Delivery Mode Room Air Allergies/Adverse Reactions: procaine [From Novocain] Allergy (Verified 01/26/18 09:59) Other-Enter Comments Home Medications: Medication Instructions Recorded Montelukast Sodium [Singulair 10 10 mg PO DAILY@1800 12/21/17 mg (*)] Ondansetron Odt [Zofran Odt 4 mg 4 mg PO Q4 PRN #10 tab 12/21/17 (*)] Albuterol [Proventil Inhaler HFA 1 - 2 puffs IH Q4-6PRN PRN 12/22/17 (*)] Ketorolac 0.5% [Acular 0.5% Opht 1 drops LEFTEYE BID 12/22/17 Drops (*)] Propylene Glycol [Systane Balance] 1 drop EACHEYE Q6 PRN 12/23/17 Aspirin EC [Aspirin EC 81 mg (*)] 81 mg PO DAILY tab 12/30/17 Sodium Chloride [Salt Tablet] 1,000 mg PO BID tab 12/30/17 Atorvastatin Calcium [Lipitor 20 20 mg PO HS 01/21/18 mg (*)] Polyethylene Glycol 3350 [Miralax 17 gm PO DAILY 01/21/18 17 gm (*)] oxyCODONE/APAP 5/325 [Percocet 1 - 2 tab PO Q4 PRN #20 tab 01/23/18 5/325 (*)] Medical Decision Making - Diagnostics Imaging Results: Imaging Impressions Chest X-Ray 01/26/18 09:43 Impression: No evidence for acute cardiopulmonary abnormality. Head CT 01/26/18 09:43 Impression: No evidence for acute intracranial hemorrhage. 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 Moderate periventricular and deep hemispheric white matter change that can be seen with small vessel ischemic disease. Other chronic findings as above, which are stable. Results called and discussed with Tomer Mann MD on January 26, 2018 at 0952 hours. Imaging: Discussed imaging studies w/ orthopedically impaired teacher Radiologist, I viewed and interpreted images myself ED Course/Re-evaluation: CHIEF COMPLAINT: Stroke alert HISTORY OF PRESENT ILLNESS: The patient is an 87 y/o male arriving emergently via EMS as a Stroke Alert with acute right-sided weakness onset around 09:00, about 45 minutes prior to arrival here. He had a left endarterectomy in December and right endarterectomy 5 days ago on 01/21/18 for severe carotid stenosis. This morning while eating breakfast he had a period of unresponsiveness with urine incontinence witnessed by his . She denied trauma or head strike to EMS. Upon regaining consciousness he had right arm weakness, which was present on EMS arrival. This has slowly resolved en route to the ED and upon my assessment he denies any complaints including chest pain, headache, speech difficulty, confusion. Per recent admission records, patient had similar TIA-like symptoms on 01/22/18 while admitted. He takes a daily aspirin, no anticoagulants. REVIEW OF SYSTEMS: A 10 point review of systems was performed and is negative with the exception of the elements mentioned in the history of present illness. PHYSICAL EXAM: HR, BP, O2 Sat, RR. Temp noted General Appearance: Alert, well hydrated, appropriate, and non-toxic appearing. Head: Atraumatic without scalp tenderness or obvious injury Eyes: Pupils equal, round, reactive to light and accommodation, EOMI, no trauma , no injection. Nose: Atraumatic, no rhinorrhea, clear. Throat: Mucus membranes moist. Neck: Supple. Healing surgical site right neck with Steristrips. Respiratory: No retractions, no distress, no wheezes, and no accessory muscle use. Lungs are clear to auscultation bilaterally. Cardiovascular: Regular rate and rhythm, no murmurs, rubs, or gallops. Good capillary refill all extremities. Gastrointestinal: Abdomen is soft, non-tender, non-distended, no masses, no rebound, no guarding, no peritoneal signs. Musculoskeletal: Normal active ROM of all extremities, atraumatic. Neurological: Alert, appropriate, and interactive. The patient has very slight right pronator drift, otherwise non-focal cranial nerves, motor, sensory, and cerebellar exam. Skin: No rashes, good turgor, no nodules on palpation. PAST MEDICAL HISTORY: Carotid stenosis; traumatic subarachnoid hemorrhage and subdural; asthma; glaucoma PAST SURGICAL HISTORY: left and right endarterectomies SOCIAL HISTORY: Nonsmoker. . Retired. Prior medical records reviewed including admission 12/22/17 for fall/confusion and 01/21/18 for right endarterectomy. DIAGNOSTICS/PROCEDURES/CRITICAL CARE TIME: Head CT: negative Head CTA: nothing acute Neck CTA: negative, patent carotid The 12 lead EKG was interpreted by myself. Sinus mechanism rate 71. See hard copy and/or "tracemaster" electronic copy for interpretation. DIFFERENTIAL DIAGNOSIS: The differential diagnosis for the patient's neurologic deficits included but was not limited to peripheral causes, central causes including CVA, TIA, electrolyte abnormalities and dehydration, cardiogenic causes, atypical causes like migraine syndrome. MEDICAL DECISION MAKING: Met EMS upon arrival and took report. This is an 87 y/o male who presents with now-resolving right arm weakness following period of unconsciousness 45 minutes ago in the setting of recent right endarterectomy 5 days ago and left endarterectomy 1 month ago. He has very slight right pronator drift on exam and denies any complaints currently. Plan for stroke/TIA work up with IV, labs, EKG , stat head and neck imaging. Initial ISTAT shows elevated potassium 6.6, but a normal creatinine. This is likely a hemolyzed sample. Will re-draw. 0943: Consulted with Dr. Villarreal, telemedicine neurology. He agrees with my treatment plan. Patient is not a TPA candidate due to recent surgery. Imaging is negative for acute process. Spoke with hospitalist service. Dr. Alvarez accepts admission. - Data Points Laboratory Results: Laboratory Results 01/26/18 10:05 01/26/18 10:05 01/26/18 01/26/18 01/26/18 10:05 10:05 10:05 WBC 10.10 10^3/uL H 10^3/uL (3.80-9.50) RBC 4.01 10^6/uL L 10^6/uL (4.40-6.38) Hgb 13.8 g/dL g/dL (13.7-17.5) POC Hgb Hct 40.5 % % (40.0-51.0) POC Hct MCV 101.0 fL H fL (81.5-99.8) MCH 34.4 pg H pg (27.9-34.1) MCHC 34.1 g/dL g/dL (32.4-36.7) RDW 12.8 % % (11.5-15.2) Plt Count 268 10^3/uL 10^3/uL (150-400) MPV 9.3 fL fL (8.7-11.7) Neut % (Auto) 69.2 % % (39.3-74.2) Lymph % (Auto) 18.2 % % (15.0-45.0) [place] % (Auto) 7.1 % % (4.5-13.0) Eos % (Auto) 3.6 % % (0.6-7.6) Baso % (Auto) 0.5 % % (0.3-1.7) Nucleat RBC Rel Count 0.0 % % (0.0-0.2) Absolute Neuts (auto) 6.99 10^3/uL H 10^3/uL (1.70-6.50) Absolute Lymphs (auto) 1.84 10^3/uL 10^3/uL (1.00-3.00) Absolute Monos (auto) 0.72 10^3/uL 10^3/uL (0.30-0.80) Absolute Eos (auto) 0.36 10^3/uL 10^3/uL (0.03-0.40) Absolute Basos (auto) 0.05 10^3/uL 10^3/uL (0.02-0.10) Absolute Nucleated RBC 0.00 10^3/uL 10^3/uL (0-0.01) Immature Gran % 1.4 % H % (0.0-1.1) Immature Gran # 0.14 10^3/uL H 10^3/uL (0.00-0.10) PT 13.1 SEC SEC (12.0-15.0) INR 0.97 (0.83-1.16) POC Sodium Sodium 137 mEq/L mEq/L (135-145) POC Potassium Potassium 5.1 mEq/L mEq/L (3.5-5.2) POC Chloride Chloride 97 mEq/L mEq/L (97-110) Carbon Dioxide 29 mEq/l mEq/l (22-31) Anion Gap 11 mEq/L mEq/L (8-16) POC BUN BUN 20 mg/dL mg/dL (7-23) Creatinine 0.9 mg/dL mg/dL (0.7-1.3) POC Creatinine Estimated GFR > 60 Glucose 129 mg/dL H mg/dL (70-100) POC Glucose Calcium 9.0 mg/dL mg/dL (8.5-10.4) Specimen Hemolysis 133 01/26/18 09:46 WBC RBC Hgb POC Hgb 17.7 gm/dL H gm/dL (13.7-17.5) Hct POC Hct 52 % H % (40-51) MCV MCH MCHC RDW Plt Count MPV Neut % (Auto) Lymph % (Auto) [place] % (Auto) Eos % (Auto) Baso % (Auto) Nucleat RBC Rel Count Absolute Neuts (auto) Absolute Lymphs (auto) Absolute Monos (auto) Absolute Eos (auto) Absolute Basos (auto) Absolute Nucleated RBC Immature Gran % Immature Gran # PT INR POC Sodium 136 mEq/L mEq/L (135-145) Sodium POC Potassium 6.6 mEq/L H* mEq/L (3.3-5.0) Potassium POC Chloride 102 mEq/L mEq/L (97-110) Chloride Carbon Dioxide Anion Gap POC BUN 27 mg/dL H mg/dL (7-23) BUN Creatinine POC Creatinine 0.9 mg/dL mg/dL (0.7-1.3) Estimated GFR Glucose POC Glucose 154 mg/dL H mg/dL (70-100) Calcium Specimen Hemolysis Point of Care Test Results: 01/26/18 09:46 POC Sodium 136 POC Potassium 6.6 H* POC Chloride 102 POC BUN 27 H POC Creatinine 0.9 POC Glucose 154 H Departure - Departure Disposition: [facility] Inpatient Acute Clinical Impression: TIA (transient ischemic attack) Qualifiers: Transient cerebral ischemia type: other Qualified Code(s): G45.8 - Other transient cerebral ischemic attacks and related syndromes Condition: Fair Report Scribed for: Tomer Mann Report Scribed by: Rosi Nix Date of Report: 01/26/18 Time of Report: 10:20
--- NOTE | 2018-01-26 10:04 | CPEKG ---
Heart Rate: 71 RR Interval: 845 P-R Interval: 192 QRSD Interval: 86 QT Interval: 416 QTC Interval: 453 P [place]: 74 QRS [place]: -11 T Wave [place]: 55 EKG Severity - ABNORMAL ECG - EKG Impression: SINUS RHYTHM EKG Impression: PROBABLE LEFT ATRIAL ABNORMALITY EKG Impression: CONSIDER ANTEROSEPTAL INFARCT Electronically Signed By: Tomer Mann 26-Jan-2018 12:17:24
[2018-01-26 10:18] LABS: PLATELET COUNT 268 10^3/uL (150-400)
[2018-01-26 10:30] LABS: INR 0.97 (0.83-1.16); PROTIME(PATIENT) 13.1 SEC (12.0-15.0)
--- NOTE | 2018-01-26 12:42 | GCON ---
[f rep st] CONSULTATION NEUROLOGIC CONSULTATION REFERRING PHYSICIAN: Gabe Vizcarra MD HISTORY: The patient is an 87-year-old gentleman, who I am seeing in neurologic consultation facundo beto acute stroke alert today and questions of new neurologic deficits. The history is obtained from courtney ackerman of the medical records as well as a review from the patient's , who is a good historian and witnessed the events and his family and the patient himself. He has a history of hospitalization , in which we found evidence of severe carotid stenoses and he has had a carotid endarterecto my during that hospitalization, and then just 5 days ago was discharged after another carotid endarte rectomy and had been stable when he was discharged. This morning, he was up trying to get ready for breakfast and his witnessed him to be using his left hand on the counter, but his right arm was hanging flaccidly at his side and seemed to be weak. She helped him to a chair and says that he then lost consciousness without any seizure activity and had some urinary incontinence as well. She call ed 911. She said he had a thready pulse, and by the time the rescue squad got there within a few min utes he was coming around. He seemed to have more weakness on his right side. In the emergency depa rtment, he underwent a head CT that showed no evidence of acute stroke or hemorrhage, and CT angiogra m of the head and neck did not show any large vessel occlusion. At this point, he is not specificall y complaining of anything new. When I examined him in December, I did not notice any asymmetry of [facility]. On January 22, during the most recent hospitalization, a day after he had the right carotid en darterectomy, he was working with PT and noted to have right upper extremity and right lower weakness and a left facial droop. He had an emergent head CT and CTA at that time that did not show any blee ding or any acute thromboses. These symptoms resolved at that time. Neurologic exam documented on showed that strength was 5/5 bilaterally. In the emergency department, Dr. Mann documente d a slight pronator drift in the right upper extremity, but otherwise no more specific weakness than that. It was felt that he should be admitted and Gen Diez was consulted. It was decided not to do tPA give n the resolution of very minor deficits at that point. PAST MEDICAL HISTORY: As noted above. 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 That has not changed. SOCIAL HISTORY: He is . 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 No a lcohol abuse or smoking. ALLERGIES: Procaine. MEDICATIONS: At home, Singulair, Zofran, albuterol, aspirin 81 mg daily, atorvastatin 20 mg daily, P ercocet as needed. REVIEW OF SYSTEMS: Unremarkable for any recent trauma. However, family says he has these episodes r ecently where he will pause what he is doing and might have 10-15 seconds in which he is relatively p oorly responsive. They say that he would generally be nonverbal during those time frames. This coul d occur when he is standing or walking or no more specific activity than that. They are not describi ng specific evidence of convulsions. PHYSICAL EXAMINATION: VITAL SIGNS: Current blood pressure 183/90, pulse of 64, respirations 16, tem perature 36.6. NECK: The right-sided carotid endarterectomy site is Steri-Stripped and looks stable . CARDIAC: Regular rate and rhythm with no murmur. NEUROLOGIC: Pupils: Right about 1 mm with sarah ctivity. The left pupil is about 3 mm and unreactive. I confirmed with the family that is not new. I did not notice the asymmetry or document that when I saw all the patient last month, but I do not know if it was an oversight or there was actually new changes, but it is more likely that I did not s ee a difference or was more subtle at that time, but I cannot say for sure. 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 He can't see my face or count fingers with that eye. The right e ye, he seems to have retained vision. There is not a clear visual field loss for the right eye. The re is just a monocular visual loss on the left. Extraocular movements are intact. Facial sensation is preserved. There is not distinct facial asymmetry. If anything, there might be a subtle left fac ial droop. Palate elevates symmetrically. Tongue protrudes midline. Hearing is preserved. On toña r testing, there is about 4/5 strength in the right upper extremity, but 5/5 in the left upper extrem ity. In the lower extremities, both are about 4/5 and perhaps slightly weak on the right compared to the left. Reflexes are brisk and symmetric with no Babinski signs. Sensation is preserved bilatera lly. No ataxia in the upper or lower extremities. DIAGNOSTIC STUDIES: I have reviewed all the diagnostic studies including the head CT, which shows no evidence of acute infarct. There is no evidence of severe stenoses or recurrent stenoses of signifi cance in the carotid vessels or the vertebrobasilar system. There are some changes that look consist ent with old ischemic infarct in the right parietal lobe and left occipital region and a moderate per iventricular white matter change, which is all stable. The patient's current NIH Stroke Scale is 3, based on the mild weakness in the right arm and leg and the subtle left facial droop. IMPRESSION: Total unit time of 75 minutes. The patient has experienced acute neurologic changes adam racterized by apparent weakness of the right upper extremity and then decreased level of awareness an d urinary incontinence with aspects suspicious for possible syncopal event versus a complex partial s eizure or a transient ischemic attack or new small stroke. It is very hard to say for sure. Althoug h I am currently detecting a little more weakness in the right upper extremity compared to the left a nd we think that is new, it is not certain that he actually had a new ischemic event. If this event was a seizure (it lacks the characteristics of a tonic or clonic phase and there were no other stereo typed movements) this could be a Tomer's paralysis. In any case, I would not change the immediate str ategies. We do not see any evidence of a large vessel occlusion or new carotid stenoses. Some of th e episodes that have been described home where there is 10-15 seconds of altered awareness could like vivas represent ischemic phenomena versus complex partial seizure phenomena. He needs to be monitored in the hospital for at least 24 hours and if more episodes occur, we can consider whether it would b e appropriate for possible anticonvulsant therapy, but I am not going to initiate that now given some of the uncertainty of this overall presentation. I have spoken with the family and the patient and they are comfortable with this approach for now. I do not think he requires an echocardiogram. I do not think MRI would currently change our management strategy. Dr. Castillo will round on the patient for neurology starting tomorrow. Please contact me with any questions. /[id number]/MODL
[2018-01-26] MEDS ORDERED: ONDANSETRON DISINTEGRATING 4 MG TAB PO PRN (15:28)
[2018-01-26] MEDS ORDERED: ONDANSETRON 4 MG/2 ML VIAL IVP PRN (15:28)
[2018-01-26] MEDS ORDERED: ACETAMINOPHEN 325 MG TAB PO PRN (15:28)
[2018-01-26] MEDS ORDERED: ALBUTEROL 60 PUFFS/8 GM MDI IH PRN (15:51)
[2018-01-26] MEDS ORDERED: POLYETHYLENE GLYCOL 3350 17 GM PKT PO PRN (15:51)
--- NOTE | 2018-01-26 16:03 | GHP ---
[f rep st] HISTORY AND PHYSICAL DATE OF ADMISSION: 01/26/2018 HISTORY OF PRESENT ILLNESS: The patient is an 87-year-old gentleman history of carotid artery diseas e, status post bilateral carotid endarterectomies in the last few months. He initially presented on the with carotid stenosis and endarterectomy at that admission, then followed by a carotid endar terectomy on the and was just discharged a couple of days ago. He also had a traumatic intracra nial hemorrhage at that time as well. The patient had just recently been discharged from rehab to home, and was doing well when he develope d this morning some right-sided weakness and a blank stare. His left hand was busy doing breakfast t ype activities and his right hand was doing nothing. His noticed that he had a thready pulse an d he had urinary incontinence. He has not had episodes like this before. He takes no kiko agents s uch as a beta hussein or calcium channel hussein. 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 He has not had fever, chills, cough, sputum, nausea , vomiting, diarrhea. He has been eating and drinking well. Does not take diuretics. REVIEW OF SYSTEMS: Complete 10-point review of systems conducted, negative except as in the HPI. PAST MEDICAL HISTORY: 1. Hyperlipidemia. 2. Cerebral vascular disease. 3. Glaucoma. SOCIAL HISTORY: . 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 No alcohol abuse or smoking. ALLERGIES: Procaine. HOME MEDICATIONS: Tylenol, MiraLAX, Singulair, Ketoralac eyedrops, atorvastatin, aspirin, albuterol. FAMILY HISTORY: Parents . PHYSICAL EXAM: VITAL SIGNS: 37.2, blood pressure 169/93, now 135/76, pulse 78, breathing 20 times a minute, 93% on room air. GENERAL: No acute distress. HEENT: Sclerae anicteric. Oropharynx clear . Mucous membranes moist. NECK: Supple, without lymphadenopathy or JVD. His right carotid endarte rectomy is healing well. There is ecchymoses, but no evidence of hematoma. HEART: S1, S2, without significant murmurs. ABDOMEN: Soft, nontender, nondistended. LOWER EXTREMITIES: No edema of calve s, nontender. SKIN: Without rash. NEUROLOGIC: Nonfocal. His right-sided strength is symmetric wi th his left. LABS: White count 10, hematocrit 40, platelets are 268,000, coags are normal. Sodium 137, potassium 5.1, chloride 97, bicarb 29, BUN 20, creatinine 0.1, glucose 129. EKG interpreted by me shows sinus at 71, with borderline left axis deviation, normal intervals, no ST or T-wave changes. Chest x-ray interpreted by me shows no acute cardiopulmonary disease. CTA of the head and neck shows no bleed, p atent carotid endarterectomies and normal bois forte of M[place], without intracranial stenosis. I discuss ed the case with Dr. Monroe Barakat and Dr. Tomer Mann. ASSESSMENT/PLAN: 87-year-old gentleman with recent bilateral carotid endarterectomies, done in a sta ged manner, now with right-sided weakness. 1. Weakness. Dr. Barakat and I have conferred and feel that it does not necessarily seem like a t ransient ischemic attack, given his episode of incontinence, as well as his thready pulse. The diffe rential includes a bradycardic episode, bradyarrhythmia, complex partial seizures. We will follow mo smiley on telemetry and if recurrent episode happens, we will consider the institution of antiepileptic dr ochoa. I did discuss with his as well. 2. Urinary frequency. The patient's notes he has a fair amount of urinary frequency. He does not have dysuria or urgency. We will go ahead and send a urinalysis. I have a low suspicion for uri nary tract infection at this time. 3. Prophylaxis low molecular heparin. 4. Vasovagal episode. This is also consistent with a vasovagal episode. We will follow. There joshi s not appear to be a trigger for a vagal is noted. DISPOSITION: Observation status. /[id number]/MODL
[2018-01-26] MEDS ORDERED: MONTELUKAST SODIUM 10 MG TAB PO SCH (18:00)
[2018-01-26] MEDS: KETOROLAC 0.5% 5 ML OPHT.BTL LEFTEYE SCH (20:51)
[2018-01-26] MEDS ORDERED: ATORVASTATIN CALCIUM 20 MG TAB PO SCH (21:00)
[2018-01-27 07:31] VITALS: BP 139/72; PULSE 64; RESP 22; TEMP 98.6; O2SAT 90
[2018-01-27] MEDS ORDERED: ENOXAPARIN 40 MG/0.4 ML SYR SC SCH (09:00)
[2018-01-27] MEDS ORDERED: ASPIRIN EC 81 MG TAB PO SCH (09:00)
[2018-01-27] MEDS: KETOROLAC 0.5% 5 ML OPHT.BTL LEFTEYE SCH (09:06)
--- NOTE | 2018-01-27 09:32 | NEUROPROG ---
Assessment: 1. Status post bilateral carotid endarterectomies 2. Transient neurologic symptoms, resolved 35 total minutes floor time; reviewing hospital records, repeat neuro imaging and obtaining clinical history from his again. He had a 30-60 second episode of alteration of awareness, with his eyes open and urinary incontinence with negative symptoms in his right arm and stiffening of his lower extremities. There was no large vessel abnormalities on CT angiography of the head or neck. Head CT shows previous cortical infarct. Overall, this certainly may have been consistent with a focal seizure. Patient is back to baseline and has no weakness in his right arm today. He will continue anti-platelet therapy indefinitely off along control of other vascular comorbidities. Recommendations: 1. He can be discharged home on Keppra 250 mg twice daily, low-dose. We discussed potential risks, benefits and alternatives of this medication including moodiness, irritability depression and suicidal ideation. He can be up titrated further he follows up with Dr. Barakat as an outpatient. Further testing such as EEG can be done at that time along with drug levels if needed. 2. [address] restrictions and seizure precautions. He is agreeable. No further recommendations. We will sign off and follow up as needed. Please do not hesitate to call with any questions or changes in neurologic status with this very pleasant patient. His will make a follow-up for her with Dr. Barakat today. Subjective: No further symptoms Objective: Vital Signs Temp Pulse Resp BP Pulse Ox 37.0 C 64 22 H 139/72 H 90 L 01/27/18 07:30 01/27/18 07:30 01/27/18 07:30 01/27/18 07:30 01/27/18 07:30 01/26/18 01/27/18 01/28/18 05:59 05:59 05:59 Intake Total 450 Balance 450 PT 13.1 SEC (12.0-15.0) 01/26/18 10:05 INR 0.97 (0.83-1.16) 01/26/18 10:05 No focal weakness No convulsive activity Allergies/Adverse Reactions: procaine [From Novocain] Allergy (Verified 01/26/18 09:59) Other-Enter Comments
--- NOTE | 2018-01-27 10:50 | HOSPPROG ---
Hospitalist Progress Note Assessment/Plan: 87 yo M w recent CEA, likely seizure home today see dc summary Subjective: seen by neurology, agree that it is surgery Objective: Vital Signs Temp Pulse Resp BP Pulse Ox 37.0 C 64 22 H 139/72 H 90 L 01/27/18 07:30 01/27/18 07:30 01/27/18 07:30 01/27/18 07:30 01/27/18 07:30 01/26/18 01/27/18 01/28/18 05:59 05:59 05:59 Intake Total 450 Balance 450 PT 13.1 SEC (12.0-15.0) 01/26/18 10:05 INR 0.97 (0.83-1.16) 01/26/18 10:05 - Physical Exam Constitutional: no apparent distress, appears nourished Eyes: PERRL, anicteric sclera Ears, Nose, Mouth, Throat: moist mucous membranes, hearing normal Cardiovascular: regular rate and rhythym, no murmur, rub, or gallop Respiratory: no respiratory distress Gastrointestinal: normoactive bowel sounds, soft, non-tender abdomen Genitourinary: no bladder fullness, No ellis in urethra Skin: warm Musculoskeletal: full muscle strength Neurologic: AAOx3 ICD10 Worksheet Patient Problems: Problems Problem Status Onset TIA (transient ischemic attack) Acute Carotid stenosis, bilateral Acute Concussion Acute Fall from chair Acute Scalp laceration Acute Transient confusion Acute
--- NOTE | 2018-01-27 11:21 | PDIAF ---
- Diagnosis Diagnosis: possible seizure Code Status: Full Code - Medication Management Discharge Medications: Medications to Continue on Transfer Montelukast Sodium [Singulair 10 mg (*)] 10 mg PO DAILY@1800 12/21/17 [Last Taken 01/25/18] Albuterol [Proventil Inhaler HFA (*)] 1 - 2 puffs IH Q4-6PRN PRN 12/22/17 [Last Taken 01/21/18] Ketorolac 0.5% [Acular 0.5% Opht Drops (*)] 1 drops LEFTEYE BID 12/22/17 [Last Taken 01/21/18] Aspirin EC [Aspirin EC 81 mg (*)] 81 mg PO DAILY tab 12/30/17 [Last Taken 01/20] Atorvastatin Calcium [Lipitor 20 mg (*)] 20 mg PO HS 01/21/18 [Last Taken ] Acetaminophen [Tylenol 325mg (*)] 325 mg PO Q6 PRN 01/26/18 [Last Taken Unknown] Polyethylene Glycol 3350 [Miralax 17 gm (*)] 17 gm PO DAILY PRN 01/26/18 [Last Taken Unknown] levETIRAcetam [Keppra 250 mg (*)] 250 mg PO BID #60 tab 01/27/18 [Last Taken Unknown] Discharge Medications: Refer to the Discharge Home Medication list for PRN reason. - Orders Services needed: Home Care, Registered Nurse, Physical Therapy, Occupational Therapy Home Care Face to Face: I certify that this patient was under my care and that I had the required [id number]-we-dowt encounter meeting the encounter requirements on the discharge day. My findings support the fact that the patient is homebound as defined in Home Care Face to Face Continued: CMS Chapter 7 Medicare Benefits Manual 30.1.1 , The condition of the patient is such that there exists a normal inability to leave home and consequently, leaving home would require a considerable and taxing effort. Isolation Type: None - Follow Up Care Current Providers and Referrals: Marcio Wesley MD [Primary Care Provider] - As per Instructions Mata Castillo MD [Medical Doctor] -
--- NOTE | 2018-01-27 12:29 | ASMTLACE ---
LACE Length of stay for Answers: 2 days current admission Acuity / Level of Answers: No Care: Did the patient have an inpatient admission? Comorbidities - select Answers: Cerebrovascular disease all that apply (CVA, TIA, aneurysms, vasc ular dementia) Coronary Artery Disease # of Emergency department Answers: 3-4 visits in the last 6 months Score: 8 Date Signed: 01/27/2018 12:28 PM Electronically Signed By:Aria Silverman
--- NOTE | 2018-01-27 13:25 | GDS ---
[f rep st] DISCHARGE SUMMARY DISCHARGE DIAGNOSIS: Focal right-sided weakness concerning for seizure versus vasovagal episode. Please see admission history and physical by Dr. Gabe Vizcarra. The patient presented with a brief episode of altered level of consciousness, right-sided weakness. He has had recent bilateral carotid endarterectomy. CTA of his head and neck showed patent vessels. There was no evidence of stroke. S ymptoms resolved by the time he presented with the care. He was not febrile. He was monitored on te lemetry with about a 10-beat run of SVT, which was not causative and warranted no further evaluation. Neurology found spells consistent with seizures. He was discharged home on Kera cleared by PT. /[id number]/MODL
--- NOTE | 2018-01-27 18:13 | ASDISCHSUM ---
Discharge Information Plan Status:Home with Home Health Medically Cleared to Leave: Discharge Date:01/27/2018 01:05 PM D/C Disposition:Home Health Service ADT D/C Disposition:Home, Routine, Self-Care Projected Discharge Date:01/27/2018 11:00 AM Transportation at D/C: Discharge Delay Reason: Follow-Up Date:01/27/2018 11:00 AM Discharge Slot: Final Diagnosis: Placement Information Referral Type:*Home Health Care Services Referral ID:[id number] Provider Name:[facility] Address 1:[address] Address 2: City:[place] Selection Factors: State:[place] Patient Contact Information Contact Name:DUYEN Relationship: Address:[address] City:[place] Alternate Phone: State/Zip Code:[place] [address] Email: Financial Information Financial Class:Medicare Advantage Plans Primary Plan Desc:[place] [employer] Primary Plan Number:[id number] Secondary Plan Desc: Secondary Plan Number: Assessment Information Case Management Discharge Plan Note Case Management Discharge Discharge Order Complete? Answers: Yes Patient to Obtain Answers: via Family Medications Transportation Arranged Answers: Family/Friends Agency/Facility Transfer Answers: Yes Report Printed & Faxed to Receiving Agency Family Notified Answers: Yes Discharge Comments Notes: Pt admitted w/TIA symptoms which have resolved. Pt will dc home today w/. Discussed w/Dr Vizcarra. Pt was current w/[facility] which he will resume (RN,PT/OT). Met w/pt and to discuss. Notified Ambar at [facility] and faxed through [facility] resumption of HHC orders and dc info. Discussed w/pt's RN. Date Signed: 01/27/2018 11:32 AM Electronically Signed By:Deneen Feliciano RN LACE LACE Length of stay for Answers: 2 days current admission Acuity / Level of Answers: No Care: Did the patient have an inpatient admission? Comorbidities - select Answers: Cerebrovascular disease all that apply (CVA, TIA, aneurysms, vasc ular dementia) Coronary Artery Disease # of Emergency department Answers: 3-4 visits in the last 6 months Score: 8 Date Signed: 01/27/2018 12:28 PM Electronically Signed By:Aria Silverman Intervention Information Intervention Type:*BELLA-Signed Date of Service:01/27/2018 10:46 AM Patient Type:Observation Staff Member:Aria Silverman Hours: Discipline: Severity: Comment:
== END 2018-01-27 13:05 | disposition home health service (06) ==
LOC: EDUNIT# → F3N 10:53
PROVIDERS: ADMIT Internal Medicine; ATTEND Internal Medicine
DX: R53.1 Weakness (principal); R41.82 Altered mental status, unspecified; R29.703 NIHSS score 3; R35.0 Frequency of micturition; I77.9 Disorder of arteries and arterioles, unspecified; J45.909 Unspecified asthma, uncomplicated; E78.5 Hyperlipidemia, unspecified; I67.9 Cerebrovascular disease, unspecified; H40.9 Unspecified glaucoma; Z98.890 Other specified postprocedural states; Z86.79 Personal history of other diseases of the circulatory system
CPT/HCPCS: 70450; 70496; 70498; 71045; 93005; 97161; G0378; J1650; 82947-QW